=== PATIENT | male | born 1940 | race Caucasian/White ===

== ENCOUNTER → 2017-11-08 11:41 | Outpatient (CLI) | payer MEDICARE, SELFPAY ==
[2017-11-08 12:47] LABS: Anion Gap 9 (5-15); BUN 20 mg/dL (7-18); BUN/Creat Ratio 16.5 RATIO (10-20); Calcium,Total 8.5 mg/dL (8.5-10.1); Chloride 101 mmol/L (98-107); Cholesterol 198 mg/dL (200); Creatinine, Serum 1.21 mg/dL (0.70-1.30); EST Glomerular Filtration Rate 62 mL/min (>60); Est Glom Filt Rate - Afr Amer 75 mL/min (>60); Glucose 88 mg/dL (74-106); High Density Lipoprotein 65 mg/dL; Potassium 4.2 mmol/L (3.5-5.1); Sodium Level 139 mmol/L (136-145); Triglycerides 148 mg/dL; Very Low Density Lipoprotein 30 mg/dL (5-40)
== END ==
PROVIDERS: Family Provider Family Medicine; PCP Family Medicine; Visit Provider Family Medicine
DX: I10 Essential (primary) hypertension (principal)
CPT/HCPCS: 36415; 80048; 80061

== ENCOUNTER → 2017-11-14 13:29 | Outpatient (CLI) | payer MEDICARE, SELFPAY ==
--- NOTE | 2017-11-14 13:31 | ECHOD_ITS ---
Reason For Study: DYSPNEA Procedure This was a 2D Doppler, Color Flow transthoracic echocardiogram. Contrast injection was performed. The study was technically difficult. Exam performed in department. Left Ventricle Normal LV size. Left ventricular systolic function is normal. The estimated ejection fraction is 53 %. No evidence for diastolic dysfunction. No regional wall motion abnormalities noted. Right Ventricle Normal RV size. ICD or pacer leads identified within the right ventricle. Atria Normal left atrium. Mitral Valve Normal mitral valve. Tricuspid Valve Normal tricuspid valve. Aortic Valve Trisinus/trileaflet aortic valve. Mild focal aortic valve calcification. Pulmonic Valve Normal pulmonic valve. Great Vessels Normal aortic root. The pulmonary artery is normal size. Inferior vena cava collapse with respiration. Pericardium/Pleural No pericardial effusion. Medication 22 gauge I.V. with prn adaptor inserted into right arm. Diluted definity 3ml given slow IV push to enhance endocardial definition. MMode/2D Measurements & Calculations LVIDd: 4.6 cm IVSd: 0.92 cm Ao root diam: 4.1 cm LVIDs: 3.2 cm LVPWd: 0.87 cm LA dimension: 4.6 cm RVDd: 2.9 cm FS: 32.1 % LAV(MOD-bp): 70.8 ml EDV(MOD-sp4): 143.7 ml EDV(MOD-sp2): 64.4 ml LAV(MOD-bp) Indexed: 27.6 ml/m2 ESV(MOD-sp4): 85.5 ml EF(MOD-sp2): 59.1 % LAV(MOD-sp2): 74.0 ml EF(MOD-sp4): 40.5 % LAV(MOD-sp4): 61.2 ml SV(MOD-sp4): 58.2 ml SV(MOD-sp2): 38.1 ml LA A4 area: 21.8 cm2 RA A4 area: 17.0 cm2 Doppler Measurements & Calculations MV E max gosia: 68.8 cm/sec Ao V2 max: 114.2 cm/sec LV V1 max: 110.1 cm/sec MV A max gosia: 50.3 cm/sec Ao max P.2 mmHg LV V1 max P.9 mmHg MV E/A: 1.4 TR max gosia: 242.2 cm/sec TR max P.5 mmHg Interpretation Summary Normal LV size. Left ventricular systolic function is normal. The estimated ejection fraction is 53 %. No evidence for diastolic dysfunction. Contrast injection was performed. Ordering Physician: Josué Aguilar Referring Physician: LIZETTE SAEED Performed By: Norah Medeiros, TIENCS, RVT
== END ==
PROVIDERS: Family Provider Family Medicine; PCP Family Medicine; Visit Provider Internal Medicine Cardiovascular Disease
DX: I42.0 Dilated cardiomyopathy (principal)
CPT/HCPCS: 93306; Q9957; A4216; C8929

== ENCOUNTER → 2018-05-07 09:52 | Outpatient (CLI) | payer MEDICARE, SELFPAY ==
[2018-05-07 12:05] LABS: Absolute Lymphocyte Count 1.02 X10^3/ul (0.83-4.51); Absolute Neutrophil Count 3.4 X10^3/uL (2.0-7.7); Eosinophil# 0.02 X10^3/uL; Eosinophils% 0.4 % (0-5); Hematocrit 39.3 % (40-54); Hemoglobin 13.3 g/dl (13.0-16.5); Lymphocyte # 1.02 X10^3/ul (4.0); Lymphocyte % 20.4 % (19-41); Mean Corp Hgb Conc 33.8 g/gl (32-36); Mean Corpuscular Hgb 35.8 pg (27.0-32.0); Mean Corpuscular Volume 105.9 fL (80-94); Mean Platelet Vol. 10.6 fl (6.2-12.0); Neutrophil # 3.44 X10^3/uL (2.7-7.7); Platelet Count 89 K/mm3 (150-450); RBC Distribution Width CV 13.7 % (11.6-14.6); RBC Distribution Width SD 51.5 fl (35.1-43.9); Red Blood Count 3.71 M/mm3 (4.6-6.2)
[2018-05-07 12:21] LABS: POSITIVE COUNT NO; POSITIVE DIFFERENTIAL NO; POSITIVE MORPHOLOGY NO
[2018-05-07 12:26] LABS: Anion Gap 6 (5-15); BUN 14 mg/dL (7-18); BUN/Creat Ratio 11.2 RATIO (10-20); Calcium,Total 9.1 mg/dL (8.5-10.1); Chloride 103 mmol/L (98-107); Creatinine, Serum 1.25 mg/dL (0.70-1.30); EST Glomerular Filtration Rate 59 mL/min (>60); Est Glom Filt Rate - Afr Amer 72 mL/min (>60); Glucose 92 mg/dL (74-106); Potassium 4.3 mmol/L (3.5-5.1); Sodium Level 140 mmol/L (136-145)
[2018-05-07 12:37] LABS: Hemoglobin A1c 5.8 % (4.2-6.3)
== END ==
PROVIDERS: Family Provider Family Medicine; PCP Family Medicine; Visit Provider Family Medicine
DX: C85.80 Other specified types of non-Hodgkin lymphoma, unspecified site (principal); I10 Essential (primary) hypertension
CPT/HCPCS: 36415; 80048; 83036; 85025

== ENCOUNTER 2018-09-03 09:55 | Inpatient (IN) | payer MEDICARE, SELFPAY ==
[2018-09-03] VITALS (51 sets, daily range): BP systolic 70–121; BP diastolic 44–78; PULSE 62–120; RESP 12–36; TEMP 36.2–38.2; O2SAT 94–100; BMI 36.2; BMI 38.7; BMI 37.3
--- NOTE | 2018-09-03 10:10 | ED.RN ---
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
--- NOTE | 2018-09-03 10:47 | RAD_ITS ---
STUDY: X-RAY CHEST REASON FOR EXAM: Male, 78 years old. Dyspnea and fever. TECHNIQUE: AP and lateral views of the chest. COMPARISON: Comparison is made with prior study dated November 16, 2015. FINDINGS: EKG electrodes are seen. There is elevation of the left hemidiaphragm. I suspect focal infiltrate in the medial right lower lobe. Follow-up is recommended. A left-sided ICD is seen. Normal mediastinum and hernandez. Normal visualized pulmonary arteries. There is atherosclerotic calcification of the aortic arch with tortuosity. There are degenerative changes of the visualized thoracic spine. There is degenerative osteoarthritis of the bilateral shoulders. There is no demonstrated abnormality of the visualized soft tissue structures of the upper abdomen. RAD/Chest PA and Lateral IMPRESSION: I suspect focal infiltrate in the right infrahilar region. Follow-up is recommended. Electronically Signed: Sandro Scott MD at 11:23 EST Tel [phone], Service support ,
--- NOTE | 2018-09-03 10:47 | EKG12_ITS ---
Test Reason : SOB Blood Pressure : / mmHG Vent. Rate : 112 BPM Atrial Rate : 138 BPM P-R Int : 000 ms QRS Dur : 158 ms QT Int : 406 ms P-R-T Axes : 000 210 031 degrees QTc Int : 554 ms Ventricular-paced rhythm Biventricular pacemaker detected Abnormal ECG Confirmed by LAY ABDUL, PATRIZIA ([id number]), book or script editor MELANIE MCKEON ([id number]) on 09/07/2018 1:21:23 PM Referred By: ISMAEL Confirmed By:PATRIZIA CHUN MD
[2018-09-03 11:03] LABS: International Normalized Ratio 1.6; Prothrombin Time (Protime)PT. 19.5 SECONDS (11.7-14.9)
[2018-09-03 11:04] LABS: Hematocrit 27.3 % (40-54); Hemoglobin 8.7 g/dl (13.0-16.5); Mean Corp Hgb Conc 31.9 g/gl (32-36); Mean Corpuscular Hgb 32.2 pg (27.0-32.0); Mean Corpuscular Volume 101.1 fL (80-94); Partial Thromboplast Time 30.3 Seconds (24.1-36.2); Platelet Count 76 K/mm3 (150-450); RBC Distribution Width CV 20.1 % (11.6-14.6); RBC Distribution Width SD 70.8 fl (35.1-43.9)
[2018-09-03 11:09] LABS: Differential Indicated MANUAL DIFF; POSITIVE COUNT YES; POSITIVE DIFFERENTIAL NO; POSITIVE MORPHOLOGY YES; White Blood Count 57.5 K/mm3 (4.4-11.0)
--- NOTE | 2018-09-03 11:10 | ED.RN ---
wbc 57.5 called from the lab. dr awan aware
[2018-09-03 11:11] LABS: Absolute Nucleated RBC Count 0.42 10^3/uL (0-5); NRBC Flagged by Analyzer 0.7 % (0-5)
[2018-09-03 11:13] LABS: ALB/GLOB Ratio 0.7 RATIO (0.9-2.4); AST(SGOT) 34 U/L (15-37); Alanine Aminotransfer ALT/SGPT 27 U/L (16-61); Albumin, Serum 2.5 g/dL (3.2-5.0); Alkaline Phosphatase 98 U/L (45-117); Anion Gap 15 (5-15); BUN 45 mg/dL (7-18); Calcium,Total 7.9 mg/dL (8.5-10.1); Chloride 96 mmol/L (98-107); EST Glomerular Filtration Rate 22 mL/min (>60); Est Glom Filt Rate - Afr Amer 26 mL/min (>60); Estimated Creatinine Clearance 24.25 ml/min; Globulin 3.8 g/dL (2.2-4.2); Glucose 144 mg/dL (74-106); Protein, Total 6.3 g/dL (6.4-8.2); Sodium Level 132 mmol/L (136-145)
[2018-09-03 11:14] LABS: Lactic Acid 7.4 mmol/L (0.4-2.0)
[2018-09-03 11:17] LABS: Hypochromasia 2+; Lymphocyte 7 % (19-41); Monocyte 4 % (0-10); Neutrophil-Band 2 % (0-5); Neutrophil-Segmented 87 % (47-70); Platelet Estimate MOD DEC (ADEQ); Total Cells Counted 100 (MANUAL DIFF)
--- NOTE | 2018-09-03 11:17 | ED.RN ---
lab resulted lactic 7.4, physician notified
[2018-09-03 11:18] LABS: Absolute Neutrophil Count 51.2 X10^3/uL (2.0-7.7); Macrocytosis 1+
[2018-09-03] MEDS: 0.9% Normal Saline 1,000 ML 999 ML IV ×2 (11:20→12:56)
[2018-09-03] MEDS: Acetaminophen 500 MG Tablet 1000 MG PO (11:20)
[2018-09-03 11:55] LABS: Mucous, Urine 0 SEEN /hpf (<or=2+); Squamous Epithelial Cells - UA 0 SEEN /hpf (0-5)
[2018-09-03 12:01] LABS: Color, Urine Yellow (Yellow); Glucose, Dipstick Normal (Normal); Ketone-Dipstick 5 mg/dl (Negative); Leukocyte Esterase-Dipstick 100 /ul (Negative); Nitrite-Dipstick Negative (Negative); Occult Blood-Urine 150 /ul (Negative); Protein-Dipstick 30 mg/dl (Negative); Specific Gravity, Urine 1.025 (1.002-1.030); Urine Clarity Sl. Cloudy (Clear); Urine Urobilinogen 4 mg/dl (Normal)
[2018-09-03 12:02] LABS: Urine Bilirubin Dipstick 1 mg/dL (Negative)
[2018-09-03 12:06] LABS: Amorphous Sediment 1+; Bacteria 1+ /hpf (None Seen); Red Blood Cells-Urine 10-25 SEEN /hpf (0-5); White Blood Cells 10-25 SEEN /hpf (0-5)
--- NOTE | 2018-09-03 12:45 | ED.VISSUMM ---
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 Patient has a defibrillator. States for the last week is not felt well is been short of breath with a cough. Productive of sputum. Mild chest discomfort. No hemoptysis. No melena. Physical Examination: Older male vital signs are stable he is tachycardic at 111 is a low-grade temperature 100.2. He looks like he does not feel well. H EENT exam unremarkable. Moist mucous membranes. Neck nontender. No lymphadenopathy. Heart tachycardic rate around 111. No obvious murmur. Lungs extra Tory wheezing. Abdomen soft. Nondistended normal bowel sounds no peritoneal signs. Patient is moving all 4 extremities. Calves are nontender without edema or cords. Neurologically is awake and alert. No focal motor deficits. Test Results: Chest x-ray shows a right perihilar pneumonia. Read both of myself and the radiologist. EKG is a paced rhythm with interventricular conduction delay. White count is 57,000 previously was 5. Hemoglobin is 8 previously was 13. White count 76,000. Electrolytes show sodium 132. Acute kidney injury with a BUN of 45 and a creatinine of 3.0. Urine shows 10-25 white cells 10-25 red cells and 1+ bacteria culture was sent. Troponins as above normal. Lactic acid is 7.4. Blood and urine cultures have been sent. Emergency Department Course and Treatment: Patient given 1 L of fluid. P.o. Tylenol. Second liter of fluid. IV Rocephin and Zithromax for his pneumonia and septic shock. Treatment Plan: Repeat exam patient's become hypotensive with a blood pressure 95/70. We will get a second liter of normal saline. I have already spoken to the hospitalist and the nut sheller will be admitted to the ICU. I discussed all test results with the family. Disposition: Admission Impression: Acute right hilar pneumonia Acute septic shock. Acute hypotension. Acute kidney injury. Critical care time of 35 minutes. Recurrent CLL with anemia and thrombocytopenia. Rule out UTI Acute lactic acidosis This note was generated with [employer] software. It may contain incorrect words, spelling, and punctuation that were not noted in review of the chart prior to signing ED Disposition - Plan for ED Patient: Chief Complaint: Shortness of Breath Referrals: Stella Shelby MD [Primary Care Provider] -
[2018-09-03] MEDS: Ceftriaxone 1 GM/50 ML BAG IV (13:10)
--- NOTE | 2018-09-03 14:17 | PCM.HP.STD ---
Problem List (1) Chronic systolic (congestive) heart failure Status: Chronic (2) Right bundle branch block Status: Chronic (3) Hyperlipidemia Status: Chronic Qualifiers: (4) Hypertension Status: Chronic Qualifiers: (5) Cardiomyopathy Status: Chronic Qualifiers: Comment: Dilated (6) Biventricular ICD (implantable cardioverter-defibrillator) in place Status: Chronic Comment: Bi-V ICD Implant 11/17/2015 @ [place] (7) Atrioventricular block, complete Status: Chronic (8) Chronic lymphoid leukemia Status: Chronic (9) Septic shock Status: Acute History of Present Illness Date of Admission: 09/03/18 Chief Complaint: Generalized weakness The patient is a 78 year old M with past medical history significant for recurrent CLL who is scheduled to begin chemotherapy in September 2018, history of nonischemic cardiomyopathy status post AICD placement who presented with a week history of generalized weakness. Per family who provided most of the history patient has had a poor appetite has also had shortness of breath as well as a nonproductive cough. Patient also did experience subjective fever and chills. He was finally brought to the emergency department where imaging studies obtained demonstrated questionable right infrahilar infiltrate. Patient was also found to have abnormal urinalysis consistent with cystitis. Patient blood pressure upon presentation to the ED was around Ron later dropped to the mid 80s. His lactic acid levels were found to be markedly elevated and assessment of septic shock was made treatment initiated per protocol patient admitted to the intensive care unit for further management 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) Bi-V ICD Implant 11/17/2015 @ [facility] Atrioventricular block, complete (Chronic) Chronic lymphoid leukemia (Chronic) Medical History: Medical History (Last Reviewed 10/25/17 @ 10:21 by Josué Aguilar MD) Chronic systolic (congestive) heart failure (Chronic) I50.22 Right bundle branch block (Chronic) I45.10 Hyperlipidemia (Chronic) E78.5 Hypertension (Chronic) I10 Cardiomyopathy (Chronic) I42.9 Dilated Atrioventricular block, complete (Chronic) I44.2 Chronic lymphoid leukemia (Chronic) C91.10 History of chest pain (Inactive) Z87.898 Allergies aspirin Allergy (Verified 04/24/18 09:05) Shortness of breath adhesive tape Adverse Reaction (Verified 04/24/18 09:05) Other TAKES SKIN OFF Home Medications: Ambulatory Orders Medication Instructions Recorded Acetaminophen [Tylenol Extra 1,000 mg PO Q4H PRN PRN 06/18/13 Strength] Albuterol IH (ProAir) [Proair Hfa] 2 puff INHALATION Q4H PRN PRN 06/18/13 Antiox #8/Om3/Dha/Epa/Lut/Zeax 1 ea PO DAILY 06/18/13 [Preservision Areds 2 Softgel] Folic Acid/Multivits-Min/Lut 1 tab PO DAILY 06/18/13 Montelukast [Singulair] 10 mg PO DAILY 06/18/13 Mckenney-3 Fatty Acids/Fish Oil [Fish 1 ea PO DAILY 06/18/13 Oil 1,000 mg Softgel] fentaNYL patch [Duragesic] 25 mcg TRANSDERM. Q72H 08/20/13 Duloxetine HCl 60 mg PO QHS 05/26/15 Ropinirole HCl [Requip] 0.25 mg PO QHS 08/03/15 gabapentin 100 mg capsule 100 mg PO BID cap 10/19/17 quinapril 10 mg tablet 10 mg PO QDAY 10/19/17 furosemide 40 mg tablet 40 mg PO QDAY #90 tab 11/13/17 Ferrous Sulfate 325 mg PO BIDCM 09/03/18 Latanoprost 0.005% [Xalatan 1 drop EACH EYE QHS 09/03/18 Opthalmic] Multivitamins,Therapeutic 1 tablet PO DAILY 09/03/18 [Multivitamin] Vit C/Vit E AC/Lut/Copper/Zinc 1 cap PO DAILY 09/03/18 [Preservision Lutein Softgel] Surgical History: Surgical History (Last Reviewed 09/03/18 @ 14:22 by Saravanan Connors MD) Biventricular ICD (implantable cardioverter-defibrillator) in place (Chronic) Z95.810 Bi-V ICD Implant 11/17/2015 @ [place] History of repair of rotator cuff Z98.890 History of right knee surgery Z98.890 Previous back surgery Z98.890 Surgical History: total knee arthroplasty Smoking Status: Former smoker - *Family History Paternal Family History: Family History (Last Reviewed 09/03/18 @ 14:22 by Saravanan Connors MD) Brother CAD (coronary artery disease) Review of Systems Constitutional: Reports: Anorexia, Chills, Fever, Weakness HEENT: Denies: Head Aches, Sinus Congestion, Sinus Drainage Cardiovascular: Denies: Chest Pain, Orthopnea, Palpitations, Paroxysmal Noc. Dyspnea Respiratory: Reports: Cough, Shortness of Breath Gastrointestinal: Denies: Abdominal Pain, Hematemesis, Hematochezia, Nausea, Melena, Vomiting Genitourinary: Denies: Dysuria, Frequency, Hematuria, Urgency Musculoskeletal: Denies: Joint Pain, Joint Tenderness Skin: Reports: Skin Changes Neurological: Denies: Focal weakness, Numbness, Tingling Psychiatric: Denies: Homicidal Ideations, Suicidal Ideations VTE Information - Inpt Only VTE Present on Admission: No VTE Mechan Device Prophylaxis: None VTE Pharm Prophylaxis ordered?: No Reason prophylaxis not ordered:: Medical Contraindication Patient Problems: Active and Suspected Problems (Last Reviewed 10/25/17 @ 10:21 by Josué Aguilar MD) Septic shock (Acute) Objective: GENERAL: Appears ill looking HEENT: Atraumatic; moist oral mucosa EYES; Anicteric, Normal Conjunctiva NECK; supple, normal thyroid, RESPIRATORY: Diminished to auscultation bilaterally, CARDIOVASCULAR: Regular S1 S2, GI: soft, non-tender, normoactive bowel sounds, : No Renal angle tenderness; EXTREMITIES: No edema, no clubbing, MUSCULOSKELETAL: No Joint Tenderness; NEURO: Awake; no lateralizing signs. SKIN: Stasis dermatitis involving both lower extremities PSYCH; Normal affect - Physical Exam Vital Signs Temp Pulse Resp BP Pulse Ox 99.9 F H 106 H 26 H 109/57 L 98 09/03/18 13:07 09/03/18 13:09 09/03/18 13:09 09/03/18 13:09 09/03/18 13:09 Oxygen Flow Rate (L/min) 15 Oxygen Delivery Method Non-Rebreather Weight: 140.4 kg Body Mass Index (BMI) 38.7 Laboratory Tests Past 24 Hrs 09/03/18 09/03/18 09/03/18 09:00 09:00 09:00 WBC 57.5 H* RBC 2.70 L Hgb 8.7 L Hct 27.3 L MCV 101.1 H MCH 32.2 H MCHC 31.9 L RDW 20.1 H RDW Differential 70.8 H Plt Count 76 L MPV TNP Neut % (Auto) Not Reportable Absolute Neuts (auto) 51.2 H Absolute Lymphs (auto) 4.00 Total Counted 100 Neutrophils % (Manual) 87 H Band Neutrophils % 2 Lymphocytes % (Manual) 7 L Monocytes % (Manual) 4 Nucleated RBC % 0.7 Diff Path Review May foll Platelet Estimate MOD DEC Hypochromasia 2+ Macrocytosis 1+ Absolute Retic 0.42 PT 19.5 H INR 1.6 APTT 30.3 Sodium 132 L Potassium 4.0 Chloride 96 L Carbon Dioxide 21.0 Anion Gap 15 BUN 45 H Creatinine 3.00 H Estim Creat Clear Calc 24.25 Est GFR (MDRD) Af Amer 26 L Est GFR (MDRD) Non-Af 22 L BUN/Creatinine Ratio 15.0 Glucose 144 H Lactic Acid Calcium 7.9 L Total Bilirubin 1.60 H AST 34 ALT 27 Alkaline Phosphatase 98 Troponin I 0.046 H Total Protein 6.3 L Albumin 2.5 L Globulin 3.8 Albumin/Globulin Ratio 0.7 L Urine Color Urine Clarity Urine pH Ur Specific [place] Urine Protein Urine Glucose (UA) Urine Ketones Urine Occult Blood Urine Nitrite Urine Bilirubin Urine Urobilinogen Ur Leukocyte Esterase Urine RBC Urine WBC Ur Squamous Epith Cells Amorphous Sediment Urine Bacteria Urine Mucus 09/03/18 09/03/18 09:00 11:45 WBC RBC Hgb Hct MCV MCH MCHC RDW RDW Differential Plt Count MPV Neut % (Auto) Absolute Neuts (auto) Absolute Lymphs (auto) Total Counted Neutrophils % (Manual) Band Neutrophils % Lymphocytes % (Manual) Monocytes % (Manual) Nucleated RBC % Diff Path Review Platelet Estimate Hypochromasia Macrocytosis Absolute Retic PT INR APTT Sodium Potassium Chloride Carbon Dioxide Anion Gap BUN Creatinine Estim Creat Clear Calc Est GFR (MDRD) Af Amer Est GFR (MDRD) Non-Af BUN/Creatinine Ratio Glucose Lactic Acid 7.4 H* Calcium Total Bilirubin AST ALT Alkaline Phosphatase Troponin I Total Protein Albumin Globulin Albumin/Globulin Ratio Urine Color Yellow Urine Clarity Sl. Cloudy Urine pH 5.0 Ur Specific [place] 1.025 Urine Protein 30 H Urine Glucose (UA) Normal Urine Ketones 5 H Urine Occult Blood 150 H Urine Nitrite Negative Urine Bilirubin 1 H Urine Urobilinogen 4 H Ur Leukocyte Esterase 100 H Urine RBC 10-25 SEEN Urine WBC 10-25 SEEN Ur Squamous Epith Cells 0 SEEN Amorphous Sediment 1+ Urine Bacteria 1+ Urine Mucus 0 SEEN Assessment/Plan All Active Problems (Last Reviewed 10/25/17 @ 10:21 by Josué Aguilar MD) Septic shock (Acute) Patient is a 78-year-old gentleman recently diagnosed with recurrent chronic lymphocytic leukemia who presented with progressive generalized weakness and assessment of septic shock was made attributed to suspected community-acquired pneumonia as well as acute cystitis 1. Septic shock secondary to community-acquired pneumonia as well as acute cystitis: Patient has been admitted to intensive care unit managed with stroke protocol consisting of aggressive IV fluid resuscitation, broad-spectrum antibiotic therapy with ciprofloxacin as well as Zosyn in addition to vancomycin after cultures have been obtained in the ED, consultation was also placed to the director of food and nutrition services Dr. Giles Case discussed with team 2. Community-acquired pneumonia presented with septic shock management as discussed above 3. Acute cystitis 4. Recently diagnosed recurrence chronic lymphocytic leukemia patient is followed by Dr. Jaimes consultation was placed to him 5. Thrombocytopenia secondary to patient's sepsis as well as his underlying malignancy patient does not have any signs or symptoms of active bleeding for now 6. 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 Chronic known ischemic cardiomyopathy status post AICD placement 8. Restless leg syndrome patient is on Requip 9. Dyslipidemia managed with diet only 10. Hypertension antihypertensives on hold in view of patient presentation 11. DVT prophylaxis SCDs for now avoided the use of chemoprophylaxis in view of patient thrombocytopenia Advance planning; did discuss with the patient and family regarding his advanced directives as well as CODE STATUS. Did explain the various modalities involved ( FULL CODE, DNR CCA, DNR CCA with no intubation, and DNR CC ) patient elected to be DNR CCA no intubation. Order was placed. Time spent on discussion 20 minutes. Clinical Impression(s) from Imaging Studies Chest X-Ray 09/03/18 10:47 IMPRESSION: I suspect focal infiltrate in the right infrahilar region. Follow-up is recommended. Electronically Signed: Sandro Scott MD at 11:23 EST Tel [phone], Service support , Code Visit Inpatient E&M: 93626 Init Hosp L3 Procedures: 20621 Advncd Care Plan 30 Min
[2018-09-03 14:54] LABS: Reflex Lactate? Y
[2018-09-03] MEDS: Ipratropium/Albuterol Sulfate 3 ML AMPUL.NEB INHALATION ×2 (15:15→18:33)
--- NOTE | 2018-09-03 15:24 | CON.PCM_ITS ---
Reason for Consult Date of Consultation: 09/03/18 Reason for Consultation: Severe sepsis/acute hypoxic respiratory failure History of Present Illness: The patient is a 78-year-old male, with a history as outlined below, who presented to the emergency department on September 03 with complaints of generalized weakness and shortness of breath. 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 Navid Menjivar on an outpatient basis. He and his family report that he was attempting to ambulate this afternoon at home, when he became rather acutely short of breath and weak. The patient denies a history of prior venous thromboembolic disease. He does not rely on supplemental oxygen at his baseline. On presentation to the emergency department, the patient was noted to be febrile with a blood pressure of 99/44 mmHg. He was noted to be tachypneic and hypoxic. Initial laboratory evaluation revealed an elevated white blood cell count to 57,000 with evidence of macrocytic anemia, with a hemoglobin of 8.7. Coags were within normal limits. Chemistry profile was notable for a creatinine of 3.0. Serum lactate was elevated to 7.4. Total bili was increased to 1.6. The patient did have an elevated troponin to 0.046. Urinalysis was notable for leukocyte esterase and 1+ urine bacteria. The patient received supplemental IV fluid hydration and was put on broad-spectrum antibiotics. He was subsequently transferred to the medical intensive care unit for ongoing management. Shortly after his arrival to the ICU, the patient was initiated on bilevel therapy with a pressure support of 14/7 centimeters of water with a 40% FiO2 bleed. Of note, the patient's initial lactate was drawn this morning at 0900 hrs. No repeat lactate was ever obtained while in the emergency department. I did have a very jaquelin discussion with the patient and the family members at the bedside regarding the patient's CODE STATUS. Following a discussion regarding the difference between full code, DNR CCA and DNR CC, the patient elected DNR CCA without intubation. 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) Bi-V ICD Implant 11/17/2015 @ [place] Atrioventricular block, complete (Chronic) Chronic lymphoid leukemia (Chronic) Medical History: Medical History (Last Reviewed 10/25/17 @ 10:21 by Josué Aguilar MD) Chronic systolic (congestive) heart failure (Chronic) I50.22 Right bundle branch block (Chronic) I45.10 Hyperlipidemia (Chronic) E78.5 Hypertension (Chronic) I10 Cardiomyopathy (Chronic) I42.9 Dilated Atrioventricular block, complete (Chronic) I44.2 Chronic lymphoid leukemia (Chronic) C91.10 History of chest pain (Inactive) Z87.898 Allergies aspirin Allergy (Verified 04/24/18 09:05) Shortness of breath adhesive tape Adverse Reaction (Verified 04/24/18 09:05) Other TAKES SKIN OFF Home Medications: Ambulatory Orders Medication Instructions Recorded Acetaminophen [Tylenol Extra 1,000 mg PO Q4H PRN PRN 06/18/13 Strength] Albuterol IH (ProAir) [Proair Hfa] 2 puff INHALATION Q4H PRN PRN 06/18/13 Antiox #8/Om3/Dha/Epa/Lut/Zeax 1 ea PO DAILY 06/18/13 [Preservision Areds 2 Softgel] Folic Acid/Multivits-Min/Lut 1 tab PO DAILY 06/18/13 Montelukast [Singulair] 10 mg PO DAILY 06/18/13 [place]-3 Fatty Acids/Fish Oil [Fish 1 ea PO DAILY 06/18/13 Oil 1,000 mg Softgel] fentaNYL patch [Duragesic] 25 mcg TRANSDERM. Q72H 08/20/13 Duloxetine HCl 60 mg PO QHS 05/26/15 Ropinirole HCl [Requip] 0.25 mg PO QHS 08/03/15 gabapentin 100 mg capsule 100 mg PO BID cap 10/19/17 quinapril 10 mg tablet 10 mg PO QDAY 10/19/17 furosemide 40 mg tablet 40 mg PO QDAY #90 tab 11/13/17 Ferrous Sulfate 325 mg PO BIDCM 09/03/18 Latanoprost 0.005% [Xalatan 1 drop EACH EYE QHS 09/03/18 Opthalmic] Multivitamins,Therapeutic 1 tablet PO DAILY 09/03/18 [Multivitamin] Vit C/Vit E AC/Lut/Copper/Zinc 1 cap PO DAILY 09/03/18 [Preservision Lutein Softgel] Surgical History: Surgical History (Last Reviewed 09/03/18 @ 14:22 by Saravanan Connors MD) Biventricular ICD (implantable cardioverter-defibrillator) in place (Chronic) Z95.810 Bi-V ICD Implant 11/17/2015 @ [place] History of repair of rotator cuff Z98.890 History of right knee surgery Z98.890 Previous back surgery Z98.890 Surgical History: total knee arthroplasty Smoking Status: Former smoker - *Family History Paternal Family History: Family History (Last Reviewed 09/03/18 @ 14:22 by Saravanan Connors MD) Brother CAD (coronary artery disease) Review of Systems Constitutional: Reports: Chills, Fever, Weakness, Fatigue Eyes: Denies: Blurred vision, Double vision HEENT: Denies: Head Aches, Sinus Congestion, Sinus Drainage Cardiovascular: Denies: Chest Pain, Palpitations Respiratory: Reports: Cough, Shortness of Breath, Sputum production Gastrointestinal: Denies: Abdominal Pain, Nausea, Vomiting Genitourinary: Denies: Dysuria Musculoskeletal: Denies: Joint Pain, Joint Tenderness Skin: Denies: Rash, Wounds Neurological: Denies: Numbness, Tingling, Focal weakness Psychiatric: Denies: Anxiety, Depression, Homicidal Ideations, Suicidal Ideations Hematologic/ Lymphatic: Reports: Anemia Patient Problems: Active and Suspected Problems (Last Reviewed 10/25/17 @ 10:21 by Josué Aguilar MD) Septic shock (Acute) Objective: The patient's most recent lab work, culture data and imaging studies have all been personally reviewed. Surface echocardiogram dated October 2017 revealed normal LV size and function with an ejection fraction of 53%. - Physical Exam General: Alert, Cooperative, - - Ill in appearance. Mildly distressed on BiPAP. HEENT: Atraumatic, PERRLA, Normocephalic Neck: Supple, No Nodes, Trachea Midline Lungs: No rhonchi, No wheeze, No rales, Diminished, Short of Breath, Tachypneic Cardiovascular: Normal S1, Normal S2, No murmurs, Tachycardic Abdomen: Bowel Sounds Present, Soft, Non Tender, Obese Extremities: No clubbing, No cyanosis, No edema Skin: - - Lower extremity venous stasis dermatitis Musculoskeletal: No Muscle Wasting Neurological: Cranial nerves II-XII grossly intact, Neuro grossly intact Psych/Mental Status: Normal Affect, Appropriate Vital Signs Temp Pulse Resp BP Pulse Ox 37.7 C H 105 H 25 H 109/57 L 97 09/03/18 13:07 09/03/18 14:40 09/03/18 14:40 09/03/18 13:09 09/03/18 14:40 Oxygen Flow Rate (L/min) 15 Oxygen Delivery Method Non-Rebreather Weight: 298 lb 11.622 oz Body Mass Index (BMI) 37.3 Laboratory Tests Past 24 Hrs 09/03/18 09/03/18 09/03/18 09:00 09:00 09:00 WBC 57.5 H* RBC 2.70 L Hgb 8.7 L Hct 27.3 L MCV 101.1 H MCH 32.2 H MCHC 31.9 L RDW 20.1 H RDW Differential 70.8 H Plt Count 76 L MPV TNP Neut % (Auto) Not Reportable Absolute Neuts (auto) 51.2 H Absolute Lymphs (auto) 4.00 Total Counted 100 Neutrophils % (Manual) 87 H Band Neutrophils % 2 Lymphocytes % (Manual) 7 L Monocytes % (Manual) 4 Nucleated RBC % 0.7 Diff Path Review May foll Platelet Estimate MOD DEC Hypochromasia 2+ Macrocytosis 1+ Absolute Retic 0.42 PT 19.5 H INR 1.6 APTT 30.3 Sodium 132 L Potassium 4.0 Chloride 96 L Carbon Dioxide 21.0 Anion Gap 15 BUN 45 H Creatinine 3.00 H Estim Creat Clear Calc 24.25 Est GFR (MDRD) Af Amer 26 L Est GFR (MDRD) Non-Af 22 L BUN/Creatinine Ratio 15.0 Glucose 144 H Lactic Acid Calcium 7.9 L Total Bilirubin 1.60 H AST 34 ALT 27 Alkaline Phosphatase 98 Troponin I 0.046 H Total Protein 6.3 L Albumin 2.5 L Globulin 3.8 Albumin/Globulin Ratio 0.7 L Urine Color Urine Clarity Urine pH Ur Specific [place] Urine Protein Urine Glucose (UA) Urine Ketones Urine Occult Blood Urine Nitrite Urine Bilirubin Urine Urobilinogen Ur Leukocyte Esterase Urine RBC Urine WBC Ur Squamous Epith Cells Amorphous Sediment Urine Bacteria Urine Mucus 09/03/18 09/03/18 09:00 11:45 WBC RBC Hgb Hct MCV MCH MCHC RDW RDW Differential Plt Count MPV Neut % (Auto) Absolute Neuts (auto) Absolute Lymphs (auto) Total Counted Neutrophils % (Manual) Band Neutrophils % Lymphocytes % (Manual) Monocytes % (Manual) Nucleated RBC % Diff Path Review Platelet Estimate Hypochromasia Macrocytosis Absolute Retic PT INR APTT Sodium Potassium Chloride Carbon Dioxide Anion Gap BUN Creatinine Estim Creat Clear Calc Est GFR (MDRD) Af Amer Est GFR (MDRD) Non-Af BUN/Creatinine Ratio Glucose Lactic Acid 7.4 H* Calcium Total Bilirubin AST ALT Alkaline Phosphatase Troponin I Total Protein Albumin Globulin Albumin/Globulin Ratio Urine Color Yellow Urine Clarity Sl. Cloudy Urine pH 5.0 Ur Specific [place] 1.025 Urine Protein 30 H Urine Glucose (UA) Normal Urine Ketones 5 H Urine Occult Blood 150 H Urine Nitrite Negative Urine Bilirubin 1 H Urine Urobilinogen 4 H Ur Leukocyte Esterase 100 H Urine RBC 10-25 SEEN Urine WBC 10-25 SEEN Ur Squamous Epith Cells 0 SEEN Amorphous Sediment 1+ Urine Bacteria 1+ Urine Mucus 0 SEEN Clinical Impression(s) from Imaging Studies Chest X-Ray 09/03/18 10:47 IMPRESSION: I suspect focal infiltrate in the right infrahilar region. Follow-up is recommended. Electronically Signed: Sandro Scott MD at 11:23 EST Tel [phone], Service support , Assessment/Plan Active and Suspected Problems (Last Reviewed 10/25/17 @ 10:21 by Josué Aguilar MD) Septic shock (Acute) RECOMMENDATIONS: 1. Continue broad-spectrum antibiotics, pending infectious workup. 2. Check strep and urine Legionella antigens, along with respiratory viral panel. Obtain sputum for culture. 3. Initiate BiPAP 14/7 and obtain arterial blood gas. 4. Supplemental IV fluid hydration per sepsis protocol. Recheck serum lactate level. 5. Discontinue ciprofloxacin. 6. Check MRSA screen. 7. Patient to be n.p.o. for now. 8. Oncology consultation is pending. 9. Place central venous catheter and initiate Levophed, if needed, to maintain hemodynamic stability. IMPRESSIONS: 1. Severe sepsis with concerns for pulmonary infectious process and/or cystitis The patient initially presented with complaints of shortness of breath and cough. His plain film chest x-ray did reveal findings concerning for a right perihilar infiltrate. At this time, the patient will be continued on the sepsis protocol with IV fluid resuscitation and broad-spectrum antibiotics. A central venous catheter will be placed so that vasopressor support can be initiated, if clinically indicated to maintain a mean arterial pressure at or above 65 mmHg. Recommend rechecking serum lactate level. Infectious workup is currently pending. 2. Acute hypoxic respiratory failure Likely secondary to underlying pulmonary infectious process. However, given the degree of the patient's hypoxia and acuity in onset, clinical considerations would also include that for venous thromboembolic disease. Nevertheless, the patient's elevated creatinine would preclude obtaining a CTA chest. If the patient does not respond appropriately to the treatment as outlined above, will consider empiric anticoagulation and lower extremity Dopplers studies. Obtain sputum for culture and check strep and urine Legionella antigens, along with respiratory viral panel. 3. Chronic leukemia Oncology consultation is currently pending. 4. Macrocytic anemia The patient's hemoglobin on presentation was noted to be 8.7 g/dL. Previously, the patient had a baseline hemoglobin in the 12-14 range. We will continue to monitor accordingly. Transfuse if hemoglobin drops below 7 g/dL. 5. Acute kidney injury Likely prerenal in etiology. Anticipate improvement with volume expansion and stabilization of hemodynamics. Urine output is currently appropriate. No indication for renal replacement therapy. 6. Troponin elevation Likely secondary to demand ischemia in the setting of #1. Continue to trend troponins. 7. Personal history of asthma/depression/restless leg syndrome/nonischemic cardiomyopathy/obesity Complicates care, management, recovery and prognosis. Hold outpatient diuretic regimen, given tenuous hemodynamics. 8. CODE STATUS DNR CCA without intubation. Confirmed by patient and family members at the bedside. TIME: 50 minutes of critical care time, independent of procedures, was spent addressing the patient's severe sepsis, acute respiratory failure, chronic leukemia, anemia, acute kidney injury, troponin elevation, review of all data and collaboration with the care team. ([id number]) Code Visit 9xxxx: [id number] Critical care first hour
--- NOTE | 2018-09-03 15:25 | NURSING ---
1525 - HR 97, R 22, 100%, 70/44 Mini KOROMA present in pt room for central line placement 1530 HR 101, R 24 SpO2 99%, BP 73/51 1535 HR 99, R 23, SpO2 98%,BP 75/53 1540 HR 100, R 21, SpO2 99%, BP 76/53. Dr. Giles present in room 1545 HR 98, R23, SpO2 99%, BP 79/50 1550 HR 100, R 24, SpO2 99%, BP 81/53. JUSTICE LOW placed
[2018-09-03 15:26] LABS: Allen Test POS; Base Excess -7 mmol/L (-2 to +2); Bicarbonate 17.7 mmol/L (22-26); Blood Gas Specimen Type ART; EPAP 7; FI02 40; IPAP 14; PO2 82 mmHG (75-100); RR 12; SITE R Radial; SO2 96 % (95-99); Time Given 1522; Total Carbon Dioxide 19 mmol/L; pCO2 28.5 mmHg (35-45)
--- NOTE | 2018-09-03 15:46 | RAD_ITS ---
STUDY: X-RAY CHEST REASON FOR EXAM: Male, 78 years old. Central line placement TECHNIQUE: Single AP portable view of the chest. COMPARISON: Prior study of earlier this date 11:11 AM FINDINGS: There is a left-sided pacemaker. There is a right-sided central venous line with distal tip superimposed on the distal SVC. There is again noted a suspected infiltrate of the medial right lower lobe. The left lung is clear. The left hemidiaphragm is elevated. Normal size heart. Normal mediastinum and hernandez. Normal visualized pulmonary arteries. There are calcified plaques of the aortic arch. Normal visualized thoracic spine. There are degenerative changes of the right shoulder joint. There is no demonstrated abnormality of the visualized soft tissue structures of the upper abdomen. RAD/CXR for Line Placement IMPRESSION: Right-sided central venous line with tip superimposed on the distal SVC. Elevated left hemidiaphragm. Suspected medial right lower lobe infiltrate, similar to the previous study. Degenerative changes of the right shoulder joint. Electronically Signed: Manuel Jade MD at 16:45 EST , Service support ,
--- NOTE | 2018-09-03 15:59 | PCM.OP.BLANK ---
Operative Report Date of Procedure: 09/03/18 - Triple-lumen catheter insertion Central line placement procedure note Indication: IV access/hemodynamic instability/vasoactive medications Procedure: A time-out was completed to verify correct patient, indication, medication allergies, procedure, coagulation studies, informed consent signed, and equipment needed. The patient was placed in the supine position for a central line placement to the rt IJ vein. The patients rt neck was prepped using chlorhexidine and a full body sterile drape was applied. 1% lidocaine was used to anesthetize the surrounding skin. A 7fr 20 cm blue guard triple lumen catheter introduced into the internal jugular vein using the modified Seldinger technique with the assistance of ultrasound. The catheter was threaded smoothly over the guidewire, the guidewire was removed easily, nonpulsatile blood returned. All ports were aspirated of air and flushed with sterile saline. The catheter was sutured in place and covered with an occlusive dressing impregnated with chlorhexidine. Post-procedure: The patient tolerated the procedure well. Vital signs remained stable. EBL 5 cc. No complications. Chest X Ray confirmed tip placement and the absence of pneumothorax. Code Visit Procedures: [id number] Insert Non-tunnel CV Cath
[2018-09-03] MEDS: 0.9% Normal Saline 1,000 ML 150 ML IV ×2 (16:04→21:36)
[2018-09-03 16:50] LABS: Lactic Acid 2.9 mmol/L (0.4-2.0)
[2018-09-03] MEDS: Ketorolac 15 MG/ML Vial IV (18:38)
[2018-09-03] MEDS: 0.9% NaCl Peripheral Flush Adult/Peds IV (18:38)
[2018-09-03 20:29] LABS: M R Staph aureus DNA By PCR Negative (Negative)
[2018-09-03 20:30] LABS: Probe Check PASS; Specimen Processing Control PASS
[2018-09-03] MEDS: Latanoprost 0.005% 1 Bottle 1 DRP EACH EYE (21:36)
[2018-09-03] MEDS: Piperacil/Tazobactam 3.375 GM/50 ML ML IV (21:36)
[2018-09-04] VITALS (61 sets, daily range): BP systolic 76–226; BP diastolic 41–194; PULSE 87–120; RESP 12–40; TEMP 36.5–38.6; O2SAT 79–100
[2018-09-04] MEDS: 0.9% NaCl Peripheral Flush Adult/Peds IV ×3 (04:24→22:53)
[2018-09-04] MEDS: 0.9% Normal Saline 1,000 ML 150 ML IV ×2 (04:25→11:05)
[2018-09-04 05:16] LABS: Anion Gap 14 (5-15); BUN 55 mg/dL (7-18); BUN/Creat Ratio 18.9 RATIO (10-20); Calcium,Total 7.6 mg/dL (8.5-10.1); Chloride 101 mmol/L (98-107); Creatinine, Serum 2.91 mg/dL (0.70-1.30); EST Glomerular Filtration Rate 22 mL/min (>60); Est Glom Filt Rate - Afr Amer 27 mL/min (>60); Glucose 159 mg/dL (74-106); Magnesium 1.9 mg/dL (1.6-2.6); Potassium 3.9 mmol/L (3.5-5.1); Sodium Level 137 mmol/L (136-145)
--- NOTE | 2018-09-04 06:52 | PN_ITS ---
Subjective: The patient was seen and examined at the bedside this morning. Events from the last 24 hours have been reviewed. The patient is currently afebrile, hemodynamically stable and maintaining appropriate oxygen saturations on BiPAP. The patient did have to be placed on Levophed transiently overnight to maintain hemodynamic stability. However, at the current time, he is not requiring vasopressor support. Levophed was weaned off approximately 2 hours ago. Objective: The patient's most recent lab work, culture data and imaging studies have all been personally reviewed. Strep and urine Legionella antigens are negative. Rapid influenza screen was negative. Blood and urine cultures are pending. Surface echocardiogram dated October 2017 revealed normal LV size and function with an ejection fraction of 53%. General: Alert, Cooperative, No apparent distress HEENT: Atraumatic, PERRLA, Normocephalic Oral: Dry Mucosa Neck: Supple, No Nodes, Trachea Midline Lungs: No rhonchi, No wheeze, Diminished, Rales Cardiovascular: Normal S1, Normal S2, No murmurs, Tachycardic, - - Paced rhythm on telemetry Abdomen: Bowel Sounds Present, Soft, Non Tender, Obese Extremities: No clubbing, No cyanosis, No edema Skin: - - Venous stasis dermatitis Musculoskeletal: No Tenderness to Palpation of Joints or Extremities Lymphatic: No Cervical, Supraclavicular, or Inguinal Adenopathy Neurological: Neuro grossly intact Psych/Mental Status: Normal Affect, Appropriate Vital Signs Temp Pulse Resp BP Pulse Ox 36.6 C 109 H 28 H 99/65 100 09/04/18 04:45 09/04/18 06:15 09/04/18 06:15 09/04/18 06:15 09/04/18 06:15 Oxygen Flow Rate (L/min) 6 Oxygen Delivery Method Bi-pap Weight: 301 lb 5.95 oz Body Mass Index (BMI) 37.3 Intake and Output for Last 24 Hours 09/02/18 09/03/18 09/04/18 23:59 23:59 23:59 Intake Total 3258 / 3258 968.5 / 968.5 Output Total 250 / 250 250 / 250 Balance 3008 / 3008 718.5 / 718.5 Labs (Last 48 Hours) 09/03/18 09/03/18 09/03/18 09:00 09:00 09:00 WBC 57.5 H* RBC 2.70 L Hgb 8.7 L Hct 27.3 L MCV 101.1 H MCH 32.2 H MCHC 31.9 L RDW 20.1 H RDW Differential 70.8 H Plt Count 76 L MPV TNP Neut % (Auto) Not Reportable Absolute Neuts (auto) 51.2 H Absolute Lymphs (auto) 4.00 Total Counted 100 Neutrophils % (Manual) 87 H Band Neutrophils % 2 Lymphocytes % (Manual) 7 L Monocytes % (Manual) 4 Nucleated RBC % 0.7 Diff Path Review May foll Platelet Estimate MOD DEC Hypochromasia 2+ Macrocytosis 1+ Absolute Retic 0.42 PT 19.5 H INR 1.6 APTT 30.3 Specimen Type Sample Site pH Bicarbonate Actual POC Total CO2 Base Excess O2 Saturation O2 % ABG pCO2 ABG pO2 Tu Test Respiration Rate O2 Delivery Device EPAP IPAP Blood Gas Notified Whom Blood Gas Notified Time Sodium 132 L Potassium 4.0 Chloride 96 L Carbon Dioxide 21.0 Anion Gap 15 BUN 45 H Creatinine 3.00 H Estim Creat Clear Calc 24.25 Est GFR (MDRD) Af Amer 26 L Est GFR (MDRD) Non-Af 22 L BUN/Creatinine Ratio 15.0 Glucose 144 H Lactic Acid Calcium 7.9 L Magnesium Total Bilirubin 1.60 H AST 34 ALT 27 Alkaline Phosphatase 98 Troponin I 0.046 H Total Protein 6.3 L Albumin 2.5 L Globulin 3.8 Albumin/Globulin Ratio 0.7 L Urine Color Urine Clarity Urine pH Ur Specific [place] Urine Protein Urine Glucose (UA) Urine Ketones Urine Occult Blood Urine Nitrite Urine Bilirubin Urine Urobilinogen Ur Leukocyte Esterase Urine RBC Urine WBC Ur Squamous Epith Cells Amorphous Sediment Urine Bacteria Urine Mucus MRSA (PCR) 09/03/18 09/03/18 09/03/18 09:00 11:45 15:20 WBC RBC Hgb Hct MCV MCH MCHC RDW RDW Differential Plt Count MPV Neut % (Auto) Absolute Neuts (auto) Absolute Lymphs (auto) Total Counted Neutrophils % (Manual) Band Neutrophils % Lymphocytes % (Manual) Monocytes % (Manual) Nucleated RBC % Diff Path Review Platelet Estimate Hypochromasia Macrocytosis Absolute Retic PT INR APTT Specimen Type ART Sample Site R Radial pH 7.40 Bicarbonate Actual 17.7 L POC Total CO2 19 Base Excess -7 L O2 Saturation 96 O2 % 40 ABG pCO2 28.5 L ABG pO2 82 Tu Test POS Respiration Rate 12 O2 Delivery Device Bi / C PAP EPAP 7 IPAP 14 Blood Gas Notified Whom ICU MD Blood Gas Notified Time 1522 Sodium Potassium Chloride Carbon Dioxide Anion Gap BUN Creatinine Estim Creat Clear Calc Est GFR (MDRD) Af Amer Est GFR (MDRD) Non-Af BUN/Creatinine Ratio Glucose Lactic Acid 7.4 H* Calcium Magnesium Total Bilirubin AST ALT Alkaline Phosphatase Troponin I Total Protein Albumin Globulin Albumin/Globulin Ratio Urine Color Yellow Urine Clarity Sl. Cloudy Urine pH 5.0 Ur Specific [place] 1.025 Urine Protein 30 H Urine Glucose (UA) Normal Urine Ketones 5 H Urine Occult Blood 150 H Urine Nitrite Negative Urine Bilirubin 1 H Urine Urobilinogen 4 H Ur Leukocyte Esterase 100 H Urine RBC 10-25 SEEN Urine WBC 10-25 SEEN Ur Squamous Epith Cells 0 SEEN Amorphous Sediment 1+ Urine Bacteria 1+ Urine Mucus 0 SEEN MRSA (PCR) 09/03/18 09/03/18 09/03/18 15:45 15:45 17:45 WBC RBC Hgb Hct MCV MCH MCHC RDW RDW Differential Plt Count MPV Neut % (Auto) Absolute Neuts (auto) Absolute Lymphs (auto) Total Counted Neutrophils % (Manual) Band Neutrophils % Lymphocytes % (Manual) Monocytes % (Manual) Nucleated RBC % Diff Path Review Platelet Estimate Hypochromasia Macrocytosis Absolute Retic PT Cancelled INR Cancelled APTT Cancelled Specimen Type Sample Site pH Bicarbonate Actual POC Total CO2 Base Excess O2 Saturation O2 % ABG pCO2 ABG pO2 Tu Test Respiration Rate O2 Delivery Device EPAP IPAP Blood Gas Notified Whom Blood Gas Notified Time Sodium Potassium Chloride Carbon Dioxide Anion Gap BUN Creatinine Estim Creat Clear Calc Est GFR (MDRD) Af Amer Est GFR (MDRD) Non-Af BUN/Creatinine Ratio Glucose Lactic Acid 2.9 H Calcium Magnesium Total Bilirubin AST ALT Alkaline Phosphatase Troponin I Total Protein Albumin Globulin Albumin/Globulin Ratio Urine Color Urine Clarity Urine pH Ur Specific [place] Urine Protein Urine Glucose (UA) Urine Ketones Urine Occult Blood Urine Nitrite Urine Bilirubin Urine Urobilinogen Ur Leukocyte Esterase Urine RBC Urine WBC Ur Squamous Epith Cells Amorphous Sediment Urine Bacteria Urine Mucus MRSA (PCR) Negative 09/04/18 04:30 WBC RBC Hgb Hct MCV MCH MCHC RDW RDW Differential Plt Count MPV Neut % (Auto) Absolute Neuts (auto) Absolute Lymphs (auto) Total Counted Neutrophils % (Manual) Band Neutrophils % Lymphocytes % (Manual) Monocytes % (Manual) Nucleated RBC % Diff Path Review Platelet Estimate Hypochromasia Macrocytosis Absolute Retic PT INR APTT Specimen Type Sample Site pH Bicarbonate Actual POC Total CO2 Base Excess O2 Saturation O2 % ABG pCO2 ABG pO2 Tu Test Respiration Rate O2 Delivery Device EPAP IPAP Blood Gas Notified Whom Blood Gas Notified Time Sodium 137 Potassium 3.9 Chloride 101 Carbon Dioxide 22.0 Anion Gap 14 BUN 55 H Creatinine 2.91 H Estim Creat Clear Calc 25.00 Est GFR (MDRD) Af Amer 27 L Est GFR (MDRD) Non-Af 22 L BUN/Creatinine Ratio 18.9 Glucose 159 H Lactic Acid Calcium 7.6 L Magnesium 1.9 Total Bilirubin AST ALT Alkaline Phosphatase Troponin I Total Protein Albumin Globulin Albumin/Globulin Ratio Urine Color Urine Clarity Urine pH Ur Specific [place] Urine Protein Urine Glucose (UA) Urine Ketones Urine Occult Blood Urine Nitrite Urine Bilirubin Urine Urobilinogen Ur Leukocyte Esterase Urine RBC Urine WBC Ur Squamous Epith Cells Amorphous Sediment Urine Bacteria Urine Mucus MRSA (PCR) Microbiology 09/03/18 11:45 Urine Catheter - Swartz Legionella Antigen - Final 09/03/18 11:45 Urine Catheter - Swartz Streptococcus pneumoniae Antigen (M - Final 09/03/18 14:39 Mucosa - Nose Influenza Types A,B Direct FA (LENA) - Final Clinical Impression(s) from Imaging Studies Chest X-Ray 09/03/18 10:47 IMPRESSION: I suspect focal infiltrate in the right infrahilar region. Follow-up is recommended. Electronically Signed: Sandro Scott MD at 11:23 EST Tel [phone], Service support , Chest X-Ray 09/03/18 15:46 IMPRESSION: Right-sided central venous line with tip superimposed on the distal SVC. Elevated left hemidiaphragm. Suspected medial right lower lobe infiltrate, similar to the previous study. Degenerative changes of the right shoulder joint. Electronically Signed: Manuel Jade MD at 16:45 EST , Service support , Medical Necessity - Tobacco Use Smoking Status: Former smoker Assessment/Plan All Active Problems (Last Reviewed 10/25/17 @ 10:21 by Josué Aguilar MD) Septic shock (Acute) AML (acute myeloid leukemia) (Acute) RECOMMENDATIONS: 1. Wean patient from BiPAP. 2. Wean supplemental oxygen to maintain saturations at or above 90%. 3. Formal speech therapy evaluation over concerns for dysphasia. 4. Patient to remain n.p.o. until advanced by speech therapy. 5. Continue empiric antibiotics, pending finalized infectious workup. 6. Continue to monitor blood counts daily. 7. Continue scheduled aerosol treatments while awake. IMPRESSIONS: 1. Septic shock with concerns for community-acquired pneumonia The patient initially presented with complaints of shortness of breath and cough. His plain film chest x-ray did reveal findings concerning for a right perihilar infiltrate. The patient was volume resuscitated and received broad- spectrum antibiotics. He did require transient vasopressor support to maintain hemodynamic stability. Levophed has since been weaned off and the patient remains hemodynamically stable. We will plan to continue broad-spectrum antibiotics, pending finalized infectious workup. 2. Acute hypoxic respiratory failure Likely secondary to underlying pulmonary infectious process. However, given the degree of the patient's hypoxia and acuity in onset, clinical considerations would also include that for venous thromboembolic disease. Nevertheless, the patient's elevated creatinine would preclude obtaining a CTA chest. If the patient does not respond appropriately to the treatment as outlined above, will consider empiric anticoagulation and lower extremity Dopplers studies. 3. 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 However, there was findings of de abi AML associated with anemia. The patient's prognosis remains poor. 4. Macrocytic anemia The patient's hemoglobin on presentation was noted to be 8.7 g/dL. Previously, the patient had a baseline hemoglobin in the 12-14 range. We will continue to monitor accordingly. Transfuse if hemoglobin drops below 7 g/dL. 5. Acute kidney injury Slowly improving. Likely prerenal in etiology. Anticipate improvement with volume expansion and stabilization of hemodynamics. Urine output is currently appropriate. No indication for renal replacement therapy. 6. Troponin elevation Likely secondary to demand ischemia in the setting of #1. 7. Personal history of asthma/depression/restless leg syndrome/nonischemic cardiomyopathy/obesity Complicates care, management, recovery and prognosis. Continue to hold outpatient diuretics. Physical therapy to work with patient. 8. CODE STATUS DNR CCA without intubation. Confirmed by patient and family members at the bedside. TIME: 35 minutes of critical care time, independent of procedures, was spent addressing the patient's septic shock, acute respiratory failure, chronic leukemia, anemia, acute kidney injury, troponin elevation, review of all data and collaboration with the care team. ([id number]) Code Visit [id number]: [id number] Critical care first hour
[2018-09-04 07:12] LABS: Hematocrit 24.9 % (40-54); Mean Corp Hgb Conc 32.1 g/gl (32-36); Mean Corpuscular Hgb 32.1 pg (27.0-32.0); Platelet Count 59 K/mm3 (150-450); RBC Distribution Width CV 20.5 % (11.6-14.6); RBC Distribution Width SD 71.4 fl (35.1-43.9); Red Blood Count 2.49 M/mm3 (4.6-6.2)
[2018-09-04 07:13] LABS: Differential Indicated SCAN CRITERIA MET; POSITIVE COUNT YES; POSITIVE DIFFERENTIAL NO; POSITIVE MORPHOLOGY YES
[2018-09-04 07:15] LABS: White Blood Count 36.4 K/mm3 (4.4-11.0)
--- NOTE | 2018-09-04 07:23 | PCM.PN.HOSP ---
Patient Problems: Active and Suspected Problems (Last Reviewed 10/25/17 @ 10:21 by Josué Aguilar MD) Septic shock (Acute) Subjective: Patient is a 78-year-old gentleman recently diagnosed with recurrent chronic lymphocytic leukemia who presented with progressive generalized weakness and assessment of septic shock was made attributed to suspected community-acquired pneumonia as well as acute cystitis patient was admitted to the intensive care unit managed per protocol. Patient was on Levophed which was weaned off earlier this a.m. Objective: GENERAL: Appears ill looking HEENT: Atraumatic; moist oral mucosa EYES; Anicteric, Normal Conjunctiva NECK; supple, normal thyroid, RESPIRATORY: Diminished to auscultation bilaterally, CARDIOVASCULAR: Regular S1 S2, GI: soft, non-tender, normoactive bowel sounds, : No Renal angle tenderness; EXTREMITIES: No edema, no clubbing, MUSCULOSKELETAL: No Joint Tenderness; NEURO: Awake; no lateralizing signs. SKIN: Stasis dermatitis involving both lower extremities PSYCH; Normal affect Vitals/I&O's: Vital Signs Temp Pulse Resp BP Pulse Ox 97.8 F 111 H 25 H 111/69 95 09/04/18 04:45 09/04/18 07:00 09/04/18 07:00 09/04/18 07:00 09/04/18 07:00 Oxygen Flow Rate (L/min) 6 Oxygen Delivery Method Room Air Weight: 136.7 kg Body Mass Index (BMI) 37.3 Intake and Output for Last 24 Hours 09/02/18 09/03/18 09/04/18 23:59 23:59 23:59 Intake Total 3258 / 3258 968.5 / 968.5 Output Total 250 / 250 250 / 250 Balance 3008 / 3008 718.5 / 718.5 Microbiology Past 72 Hours 09/03/18 11:45 Urine Catheter - Swartz Legionella Antigen - Final 09/03/18 11:45 Urine Catheter - Swartz Streptococcus pneumoniae Antigen (M - Final 09/03/18 14:39 Mucosa - Nose Influenza Types A,B Direct FA (LENA) - Final Laboratory Results 09/03/18 09:00: WBC 57.5 H*, RBC 2.70 L, Hgb 8.7 L, Hct 27.3 L, MCV 101.1 H, MCH 32.2 H, MCHC 31.9 L, RDW 20.1 H, RDW Differential 70.8 H, Plt Count 76 L, MPV TNP, Neut % (Auto) Not Reportable, Absolute Neuts (auto) 51.2 H, Absolute Lymphs (auto) 4.00, Total Counted 100, Neutrophils % (Manual) 87 H, Band Neutrophils % 2, Lymphocytes % (Manual) 7 L, Monocytes % (Manual) 4, Nucleated RBC % 0.7, Diff Path Review January, Platelet Estimate MOD DEC, Hypochromasia 2+, Macrocytosis 1+, Absolute Retic 0.42 09/03/18 09:00: PT 19.5 H, INR 1.6, APTT 30.3 09/03/18 09:00: Sodium 132 L, Potassium 4.0, Chloride 96 L, Carbon Dioxide 21.0, Anion Gap 15, BUN 45 H, Creatinine 3.00 H, Estim Creat Clear Calc 24.25, Est GFR (MDRD) Af Amer 26 L, Est GFR (MDRD) Non-Af 22 L, BUN/Creatinine Ratio 15.0, Glucose 144 H, Calcium 7.9 L, Total Bilirubin 1.60 H, AST 34, ALT 27, Alkaline Phosphatase 98, Troponin I 0.046 H, Total Protein 6.3 L, Albumin 2.5 L, Globulin 3.8, Albumin/Globulin Ratio 0.7 L 09/03/18 09:00: Lactic Acid 7.4 H* 09/03/18 11:45: Urine Color Yellow, Urine Clarity Sl. Cloudy, Urine pH 5.0, Ur Specific [place] 1.025, Urine Protein 30 H, Urine Glucose (UA) Normal, Urine Ketones 5 H, Urine Occult Blood 150 H, Urine Nitrite Negative, Urine Bilirubin 1 H, Urine Urobilinogen 4 H, Ur Leukocyte Esterase 100 H, Urine RBC 10-25 SEEN, Urine WBC 10-25 SEEN, Ur Squamous Epith Cells 0 SEEN, Amorphous Sediment 1+, Urine Bacteria 1+, Urine Mucus 0 SEEN 09/03/18 15:20: Specimen Type ART, Sample Site R Radial, pH 7.40, Bicarbonate Actual 17.7 L, POC Total CO2 19, Base Excess -7 L, O2 Saturation 96, O2 % 40, ABG pCO2 28.5 L, ABG pO2 82, Tu Test POS, Respiration Rate 12, O2 Delivery Device Bi / C PAP, EPAP 7, IPAP 14, Blood Gas Notified Whom ICU , Blood Gas Notified Time 1522 09/03/18 15:45: PT Cancelled, INR Cancelled, APTT Cancelled 09/03/18 15:45: Lactic Acid 2.9 H 09/03/18 17:45: MRSA (PCR) Negative 09/04/18 04:30: Sodium 137, Potassium 3.9, Chloride 101, Carbon Dioxide 22.0, Anion Gap 14, BUN 55 H, Creatinine 2.91 H, Estim Creat Clear Calc 25.00, Est GFR (MDRD) Af Amer 27 L, Est GFR (MDRD) Non-Af 22 L, BUN/Creatinine Ratio 18.9, Glucose 159 H, Calcium 7.6 L, Magnesium 1.9 09/04/18 04:30: WBC 36.4 H*, RBC 2.49 L, Hgb 8.0 L, Hct 24.9 L, MCV 100.0 H, MCH 32.1 H, MCHC 32.1, RDW 20.5 H, RDW Differential 71.4 H, Plt Count 59 L, MPV TNP, Immature Gran % (Auto) TNP, Neut % (Auto) TNP, Lymph % (Auto) TNP, [place] % (Auto) 2.5, Eos % (Auto) 0.1, Baso % (Auto) 0.1, Absolute Neuts (auto) TNP, Absolute Lymphs (auto) TNP, Total Counted Pending Current Medications Acetaminophen (Tylenol) 650 mg PO Q4H PRN PRN PRN Reason: FEVER Albuterol Sulfate (Ventolin Aerosols) 2.5 mg INHALATION Q2H PRN PRN PRN Reason: SHORTNESS OF BREATH Albuterol/Ipratropium (Duoneb) 3 ml INHALATION Q6H.RT [facility] Last Admin: 09/04/18 01:09 Dose: Not Given Duloxetine HCl (Cymbalta) 60 mg PO QHS [facility] Famotidine (Pepcid) 20 mg PO DAILY [facility] Fentanyl (Duragesic Patch) 25 mcg TRANSDERM. Q72H [facility] Ferrous Sulfate (Ferrous Sulfate) 325 mg PO BIDCM [facility] Last Admin: 09/04/18 00:33 Dose: Not Given Gabapentin (Neurontin) 100 mg PO BID [facility] Last Admin: 12/18/18 00:35 Dose: Not Given Guaifenesin (Mucinex) 1,200 mg PO BID [facility] Last Admin: 09/04/18 00:35 Dose: Not Given Sodium Chloride () 1,000 mls @ 150 mls/hr IV .Q6H40M [facility] Last Admin: 09/04/18 04:25 Dose: 150 mls/hr Piperacillin Sod/Tazobactam Sod (Zosyn) 3.375 gm in 50 mls @ 12.5 mls/hr IV Q12 [facility] Last Admin: 09/03/18 21:36 Dose: 12.5 mls/hr Norepinephrine Bitartrate 8 mg (/ Dextrose) 258 mls @ 9.68 mls/hr IV .[id number] [facility] Latanoprost (Xalatan Opthalmic) 1 drop EACH EYE QHS [facility] Last Admin: 09/03/18 21:36 Dose: 1 drop Magnesium Hydroxide (Milk Of Magnesia) 30 ml PO DAILY PRN PRN PRN Reason: Constipation Montelukast Sodium (Singulair) 10 mg PO QHS [facility] Ondansetron HCl (Zofran) 4 mg IV Q8H PRN PRN PRN Reason: NAUSEA Oxycodone HCl (Oxyir) 5 mg PO Q4H PRN PRN PRN Reason: Moderate Pain (pain scale 4-5) Pramipexole Dihydrochloride (Mirapex) 0.125 mg PO QHS [facility] Last Admin: 09/04/18 00:35 Dose: Not Given Sodium Chloride () 5 - 15 ml IV UD PRN PRN Reason: SALINE FLUSH Last Admin: 09/04/18 04:24 Dose: 10 ml Zolpidem Tartrate (Ambien (Generic)) 5 mg PO QHS PRN PRN PRN Reason: SLEEP Medical Necessity - Tobacco Use Smoking Status: Former smoker Assessment/Plan All Active Problems (Last Reviewed 10/25/17 @ 10:21 by Josué Aguilar MD) Septic shock (Acute) Patient is a 78-year-old gentleman recently diagnosed with recurrent chronic lymphocytic leukemia who presented with progressive generalized weakness and assessment of septic shock was made attributed to suspected community-acquired pneumonia as well as acute cystitis 1. Septic shock secondary to community-acquired pneumonia as well as acute cystitis: Patient has been admitted to intensive care unit managed with stroke protocol consisting of aggressive IV fluid resuscitation, broad-spectrum antibiotic therapy with ciprofloxacin as well as Zosyn in addition to vancomycin after cultures have been obtained in the ED, consultation was also placed to the leather heel breaster Dr. Giles Case discussed with team 2. Community-acquired pneumonia presented with septic shock management as discussed above 3. Acute cystitis; on antibiotic therapy cultures pending 4. Leucocytosis; Discussed with Dr Martinez; patient probably has new onset leukemia probably AML 5. History of chronic lymphocytic leukemia 6. Thrombocytopenia secondary to patient's sepsis as well as his underlying malignancy patient does not have any signs or symptoms of active bleeding for now 7. 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 Non ischemic cardiomyopathy status post AICD placement 9. Restless leg syndrome patient is on Requip 10. Dyslipidemia managed with diet only 11. Hypertension antihypertensives on hold in view of patient presentation 12. DVT prophylaxis SCDs for now avoided the use of chemoprophylaxis in view of patient thrombocytopenia Code Visit Inpatient E&M: 79524 [facility] Hosp L3
[2018-09-04 07:55] LABS: Anisocytosis 1+; Basophil 1 % (0-1); Lymphocyte 2 % (19-41); Metamyelocyte 1 % (0-1); Monocyte 3 % (0-10); Neutrophil-Segmented 93 % (47-70); Total Cells Counted 100 (MANUAL DIFF)
[2018-09-04 07:56] LABS: Platelet Estimate MOD DEC (ADEQ); Platelet Morphology LARGE; Scan Smear per Review Criteria MANUAL DIFF
[2018-09-04 07:58] LABS: Neutrophil # 33.85 X10^3/uL (2.7-7.7)
[2018-09-04 07:59] LABS: Absolute Lymphocyte Count 0.73 X10^3/ul (0.83-4.51); Absolute Neutrophil Count 33.9 X10^3/uL (2.0-7.7); Lymphocyte # 0.73 X10^3/ul (4.0)
--- NOTE | 2018-09-04 08:06 | PCM.CONS.B ---
Problem List (1) AML (acute myeloid leukemia) Status: Acute - Consult Date of Consult: 09/04/18 - Reason for Consult HPI: patient is a 70-year-old male who has a past medical history significant for hypertension, venous insufficiency ulcers of the lower extremities, cardiomyopathy due to hypertension and complete heart block as well as CLL. Patient was initially diagnosed with CLL in 2002. He did not require treatment until 2014 when he received treatment with rituximab/fludarabine between 06/08/2015 and 12/29/2015. He had remained in complete remission. He was recently seen for an office visitwhere his blood counts showed worsening anemia and thrombocytopenia. Hemoglobin was 9.4 g/dLand platelet count was 88,000 on a CBC performed on 08/29/2018. At that time the total white count was 27,000. Flow cytometry for low-grade lymphoma was negative for relapse of CLL. An acute flow panel demonstratedat 17% a total white cells had mean of phenotypic characteristics of blast cells expressing CD 11b, CD13, CD16, CD33, CD38, CD45, CD 64 and CD 65. Patient was brought to the ED yesterday by his family for a week long history of worsening fatigue, increasing shortness of breath associated with nonproductive cough, generalized weakness and loss of appetite. Initial workup demonstrated acute kidney injury as well as markedly leukocytosis with left shift and elevated lactic acid consistent with sepsis syndrome. He's been admitted to the ICU and started on broad-spectrum antibiotics as well as fluids and pressor support. He still has tachypnea but is off pressors. No unusual bleeding. He's not cognizant of the past few days, but denies nausea, vomiting and diarrhea. Allergies aspirin Allergy (Verified 09/03/18 16:56) Shortness of breath messes w/his asthma adhesive tape Adverse Reaction (Verified 04/24/18 09:05) Other TAKES SKIN OFF Current Medications Acetaminophen (Tylenol) 650 mg PO Q4H PRN PRN PRN Reason: FEVER Albuterol Sulfate (Ventolin Aerosols) 2.5 mg INHALATION Q2H PRN PRN PRN Reason: SHORTNESS OF BREATH Albuterol/Ipratropium (Duoneb) 3 ml INHALATION Q6H.RT IVY Last Admin: 09/04/18 01:09 Dose: Not Given Duloxetine HCl (Cymbalta) 60 mg PO QHS IVY Famotidine (Pepcid) 20 mg PO DAILY [facility] Fentanyl (Duragesic Patch) 25 mcg TRANSDERM. Q72H [facility] Last Admin: 09/04/18 07:31 Dose: Not Given Gabapentin (Neurontin) 100 mg PO BID [facility] Last Admin: 09/04/18 00:35 Dose: Not Given Guaifenesin (Mucinex) 1,200 mg PO BID [facility] Last Admin: 09/04/18 00:35 Dose: Not Given Sodium Chloride () 1,000 mls @ 150 mls/hr IV .Q6H40M [facility] Last Admin: 09/04/18 04:25 Dose: 150 mls/hr Piperacillin Sod/Tazobactam Sod (Zosyn) 3.375 gm in 50 mls @ 12.5 mls/hr IV Q12 [facility] Last Admin: 09/03/18 21:36 Dose: 12.5 mls/hr Norepinephrine Bitartrate 8 mg (/ Dextrose) 258 mls @ 9.68 mls/hr IV .[id number] [facility] Latanoprost (Xalatan Opthalmic) 1 drop EACH EYE QHS [facility] Last Admin: 09/03/18 21:36 Dose: 1 drop Magnesium Hydroxide (Milk Of Magnesia) 30 ml PO DAILY PRN PRN PRN Reason: Constipation Montelukast Sodium (Singulair) 10 mg PO QHS [facility] Ondansetron HCl (Zofran) 4 mg IV Q8H PRN PRN PRN Reason: NAUSEA Oxycodone HCl (Oxyir) 5 mg PO Q4H PRN PRN PRN Reason: Moderate Pain (pain scale 4-5) Pramipexole Dihydrochloride (Mirapex) 0.125 mg PO QHS [facility] Last Admin: 09/04/18 00:35 Dose: Not Given Sodium Chloride () 5 - 15 ml IV UD PRN PRN Reason: SALINE FLUSH Last Admin: 09/04/18 04:24 Dose: 10 ml Zolpidem Tartrate (Ambien (Generic)) 5 mg PO QHS PRN PRN PRN Reason: SLEEP Problem List (Last Reviewed 10/25/17 @ 10:21 by Josué Aguilar MD) Septic shock (Acute) AML (acute myeloid leukemia) (Acute) PHYSICAL EXAM: Vitals: Vital Signs Temp 97.8 F 09/04/18 04:45 Pulse 111 H 09/04/18 07:00 Resp 25 H 09/04/18 07:00 BP 111/69 09/04/18 07:00 Pulse Ox 95 09/04/18 07:00 Intake & Output 09/02/18 09/03/18 09/04/18 23:59 23:59 23:59 Intake Total 3258 / 3258 968.5 / 968.5 Output Total 250 / 250 250 / 250 Balance 3008 / 3008 718.5 / 718.5 Weight: 135.5 kg 136.7 kg Intake: IV fluid/meds 3258 / 3258 968.5 / 968.5 Output: Urine 250 / 250 250 / 250 Tachypneic-appearing and in mild respiratory distress. EYES: Sclerae are anicteric bilaterally. NECK: Supple. LYMPHATIC: There is no palpable cervical or supraclavicular adenopathy. RESPIRATORY: diminished air entry in all leslie with coarse crackles at both bases. CARDIOVASCULAR: Rhythm is regular. ABDOMEN: The abdomen is obese and nondistended. SKIN: chronic changes of stasis dermatitis and healed venous insufficiency ulcers of the lower extremities bilaterally. NEUROLOGIC: pulling unit floorhand II-XII are grossly intact. Laboratory Results - last 24 hr 09/03/18 09/03/18 09/03/18 09:00 09:00 09:00 WBC 57.5 H* RBC 2.70 L Hgb 8.7 L Hct 27.3 L MCV 101.1 H MCH 32.2 H MCHC 31.9 L RDW 20.1 H RDW Differential 70.8 H Plt Count 76 L MPV TNP Immature Gran % (Auto) Neut % (Auto) Not Reportable Lymph % (Auto) Chaves % (Auto) Eos % (Auto) Baso % (Auto) Absolute Neuts (auto) 51.2 H Absolute Lymphs (auto) 4.00 Total Counted 100 Neutrophils % (Manual) 87 H Band Neutrophils % 2 Lymphocytes % (Manual) 7 L Monocytes % (Manual) 4 Basophils % (Manual) Metamyelocytes % Nucleated RBC % 0.7 Diff Path Review May foll Platelet Estimate MOD DEC Plt Morphology Comment Hypochromasia 2+ Anisocytosis Macrocytosis 1+ Absolute Retic 0.42 PT 19.5 H INR 1.6 APTT 30.3 Specimen Type Sample Site pH Bicarbonate Actual POC Total CO2 Base Excess O2 Saturation O2 % ABG pCO2 ABG pO2 Tu Test Respiration Rate O2 Delivery Device EPAP IPAP Blood Gas Notified Whom Blood Gas Notified Time Sodium 132 L Potassium 4.0 Chloride 96 L Carbon Dioxide 21.0 Anion Gap 15 BUN 45 H Creatinine 3.00 H Estim Creat Clear Calc 24.25 Est GFR (MDRD) Af Amer 26 L Est GFR (MDRD) Non-Af 22 L BUN/Creatinine Ratio 15.0 Glucose 144 H Lactic Acid Calcium 7.9 L Magnesium Total Bilirubin 1.60 H AST 34 ALT 27 Alkaline Phosphatase 98 Troponin I 0.046 H Total Protein 6.3 L Albumin 2.5 L Globulin 3.8 Albumin/Globulin Ratio 0.7 L Urine Color Urine Clarity Urine pH Ur Specific [place] Urine Protein Urine Glucose (UA) Urine Ketones Urine Occult Blood Urine Nitrite Urine Bilirubin Urine Urobilinogen Ur Leukocyte Esterase Urine RBC Urine WBC Ur Squamous Epith Cells Amorphous Sediment Urine Bacteria Urine Mucus MRSA (PCR) 09/03/18 09/03/18 09/03/18 09:00 11:45 15:20 WBC RBC Hgb Hct MCV MCH MCHC RDW RDW Differential Plt Count MPV Immature Gran % (Auto) Neut % (Auto) Lymph % (Auto) [place]aves % (Auto) Eos % (Auto) Baso % (Auto) Absolute Neuts (auto) Absolute Lymphs (auto) Total Counted Neutrophils % (Manual) Band Neutrophils % Lymphocytes % (Manual) Monocytes % (Manual) Basophils % (Manual) Metamyelocytes % Nucleated RBC % Diff Path Review Platelet Estimate Plt Morphology Comment Hypochromasia Anisocytosis Macrocytosis Absolute Retic PT INR APTT Specimen Type ART Sample Site R Radial pH 7.40 Bicarbonate Actual 17.7 L POC Total CO2 19 Base Excess -7 L O2 Saturation 96 O2 % 40 ABG pCO2 28.5 L ABG pO2 82 Tu Test POS Respiration Rate 12 O2 Delivery Device Bi / C PAP EPAP 7 IPAP 14 Blood Gas Notified Whom ICU Blood Gas Notified Time 1522 Sodium Potassium Chloride Carbon Dioxide Anion Gap BUN Creatinine Estim Creat Clear Calc Est GFR (MDRD) Af Amer Est GFR (MDRD) Non-Af BUN/Creatinine Ratio Glucose Lactic Acid 7.4 H* Calcium Magnesium Total Bilirubin AST ALT Alkaline Phosphatase Troponin I Total Protein Albumin Globulin Albumin/Globulin Ratio Urine Color Yellow Urine Clarity Sl. Cloudy Urine pH 5.0 Ur Specific [place] 1.025 Urine Protein 30 H Urine Glucose (UA) Normal Urine Ketones 5 H Urine Occult Blood 150 H Urine Nitrite Negative Urine Bilirubin 1 H Urine Urobilinogen 4 H Ur Leukocyte Esterase 100 H Urine RBC 10-25 SEEN Urine WBC 10-25 SEEN Ur Squamous Epith Cells 0 SEEN Amorphous Sediment 1+ Urine Bacteria 1+ Urine Mucus 0 SEEN MRSA (PCR) 09/03/18 09/03/18 09/03/18 15:45 15:45 17:45 WBC RBC Hgb Hct MCV MCH MCHC RDW RDW Differential Plt Count MPV Immature Gran % (Auto) Neut % (Auto) Lymph % (Auto) [place] % (Auto) Eos % (Auto) Baso % (Auto) Absolute Neuts (auto) Absolute Lymphs (auto) Total Counted Neutrophils % (Manual) Band Neutrophils % Lymphocytes % (Manual) Monocytes % (Manual) Basophils % (Manual) Metamyelocytes % Nucleated RBC % Diff Path Review Platelet Estimate Plt Morphology Comment Hypochromasia Anisocytosis Macrocytosis Absolute Retic PT Cancelled INR Cancelled APTT Cancelled Specimen Type Sample Site pH Bicarbonate Actual POC Total CO2 Base Excess O2 Saturation O2 % ABG pCO2 ABG pO2 Tu Test Respiration Rate O2 Delivery Device EPAP IPAP Blood Gas Notified Whom Blood Gas Notified Time Sodium Potassium Chloride Carbon Dioxide Anion Gap BUN Creatinine Estim Creat Clear Calc Est GFR (MDRD) Af Amer Est GFR (MDRD) Non-Af BUN/Creatinine Ratio Glucose Lactic Acid 2.9 H Calcium Magnesium Total Bilirubin AST ALT Alkaline Phosphatase Troponin I Total Protein Albumin Globulin Albumin/Globulin Ratio Urine Color Urine Clarity Urine pH Ur Specific [place] Urine Protein Urine Glucose (UA) Urine Ketones Urine Occult Blood Urine Nitrite Urine Bilirubin Urine Urobilinogen Ur Leukocyte Esterase Urine RBC Urine WBC Ur Squamous Epith Cells Amorphous Sediment Urine Bacteria Urine Mucus MRSA (PCR) Negative 09/04/18 09/04/18 04:30 04:30 WBC 36.4 H* RBC 2.49 L Hgb 8.0 L Hct 24.9 L MCV 100.0 H MCH 32.1 H MCHC 32.1 RDW 20.5 H RDW Differential 71.4 H Plt Count 59 L MPV TNP Immature Gran % (Auto) CAREER DEVELOPMENT COORDINATOR Neut % (Auto) CAREER DEVELOPMENT COORDINATOR Lymph % (Auto) CAREER DEVELOPMENT COORDINATOR Chaves % (Auto) CAREER DEVELOPMENT COORDINATOR Eos % (Auto) CAREER DEVELOPMENT COORDINATOR Baso % (Auto) CAREER DEVELOPMENT COORDINATOR Absolute Neuts (auto) 33.9 H Absolute Lymphs (auto) 0.73 L Total Counted 100 Neutrophils % (Manual) 93 H Band Neutrophils % Lymphocytes % (Manual) 2 L Monocytes % (Manual) 3 Basophils % (Manual) 1 Metamyelocytes % 1 Nucleated RBC % Diff Path Review May foll Platelet Estimate MOD DEC Plt Morphology Comment LARGE Hypochromasia Anisocytosis 1+ Macrocytosis Absolute Retic PT INR APTT Specimen Type Sample Site pH Bicarbonate Actual POC Total CO2 Base Excess O2 Saturation O2 % ABG pCO2 ABG pO2 Tu Test Respiration Rate O2 Delivery Device EPAP IPAP Blood Gas Notified Whom Blood Gas Notified Time Sodium 137 Potassium 3.9 Chloride 101 Carbon Dioxide 22.0 Anion Gap 14 BUN 55 H Creatinine 2.91 H Estim Creat Clear Calc 25.00 Est GFR (MDRD) Af Amer 27 L Est GFR (MDRD) Non-Af 22 L BUN/Creatinine Ratio 18.9 Glucose 159 H Lactic Acid Calcium 7.6 L Magnesium 1.9 Total Bilirubin AST ALT Alkaline Phosphatase Troponin I Total Protein Albumin Globulin Albumin/Globulin Ratio Urine Color Urine Clarity Urine pH Ur Specific [place] Urine Protein Urine Glucose (UA) Urine Ketones Urine Occult Blood Urine Nitrite Urine Bilirubin Urine Urobilinogen Ur Leukocyte Esterase Urine RBC Urine WBC Ur Squamous Epith Cells Amorphous Sediment Urine Bacteria Urine Mucus MRSA (PCR) ASSESSMENT/PLAN: 1) AML. Assessment: -In summary the patient is a 78-year-old male who has a history of CLL. Recent analysis showed CLL to remain in complete remission however new finding of de abi AML associated with anemia, thrombocytopenia and sepsis. -I discussed the natural history, treated course and overall prognosis of the disease with the patient and subsequently his daughter in law. He may be a candidate for potentially life prolonging treatment with azacitidine if has more substantial recovery from the current infectious episode. However his overall prognosis remains poor. Plan: -Continued treatment for sepsis syndrome including fluids, antibiotics and respiratory support short of intubation. -Would suggest transfusing leuko-reduced but non-irradiated RBCs for hemoglobin less than 7.5-8 g/dl and leuko-reduced nonirradiated platelets for platelet count less than 15,000. -Patient to follow up with Dr. Shoemaker later next week if able to be discharged home or SNF. Inpatient hospice would be indicated if deteriorates further. -Discussed with Drs. Giles and Waylon.
--- NOTE | 2018-09-04 08:09 | CON.PCM_ITS ---
Problem List (1) AML (acute myeloid leukemia) Status: Acute - Consult Date of Consult: 09/04/18 - Reason for Consult HPI: patient is a 70-year-old male who has a past medical history significant for hypertension, venous insufficiency ulcers of the lower extremities, cardiomyopathy due to hypertension and complete heart block as well as CLL. Patient was initially diagnosed with CLL in 2002. He did not require treatment until 2014 when he received treatment with rituximab/fludarabine between 06/08/2015 and 12/29/2015. He had remained in complete remission. He was recently seen for an office visitwhere his blood counts showed worsening anemia and thrombocytopenia. Hemoglobin was 9.4 g/dLand platelet count was 88,000 on a CBC performed on 08/29/2018. At that time the total white count was 27,000. Flow cytometry for low-grade lymphoma was negative for relapse of CLL. An acute flow panel demonstratedat 17% a total white cells had mean of phenotypic characteristics of blast cells expressing CD 11b, CD13, CD16, CD33, CD38, CD45, CD 64 and CD 65. Patient was brought to the ED yesterday by his family for a week long history of worsening fatigue, increasing shortness of breath associated with nonproductive cough, generalized weakness and loss of appetite. Initial workup demonstrated acute kidney injury as well as markedly leukocytosis with left shift and elevated lactic acid consistent with sepsis syndrome. He's been admitted to the ICU and started on broad-spectrum antibiotics as well as fluids and pressor support. He still has tachypnea but is off pressors. No unusual bleeding. He's not cognizant of the past few days, but denies nausea, vomiting and diarrhea. Allergies aspirin Allergy (Verified 09/03/18 16:56) Shortness of breath messes w/his asthma adhesive tape Adverse Reaction (Verified 04/24/18 09:05) Other TAKES SKIN OFF Current Medications Acetaminophen (Tylenol) 650 mg PO Q4H PRN PRN PRN Reason: FEVER Albuterol Sulfate (Ventolin Aerosols) 2.5 mg INHALATION Q2H PRN PRN PRN Reason: SHORTNESS OF BREATH Albuterol/Ipratropium (Duoneb) 3 ml INHALATION Q6H.RT IVY Last Admin: 09/04/18 01:09 Dose: Not Given Duloxetine HCl (Cymbalta) 60 mg PO QHS IVY Famotidine (Pepcid) 20 mg PO DAILY [facility] Fentanyl (Duragesic Patch) 25 mcg TRANSDERM. Q72H [facility] Last Admin: 09/04/18 07:31 Dose: Not Given Gabapentin (Neurontin) 100 mg PO BID [facility] Last Admin: 09/04/18 00:35 Dose: Not Given Guaifenesin (Mucinex) 1,200 mg PO BID [facility] Last Admin: 09/04/18 00:35 Dose: Not Given Sodium Chloride () 1,000 mls @ 150 mls/hr IV .Q6H40M [facility] Last Admin: 09/04/18 04:25 Dose: 150 mls/hr Piperacillin Sod/Tazobactam Sod (Zosyn) 3.375 gm in 50 mls @ 12.5 mls/hr IV Q12 [facility] Last Admin: 09/03/18 21:36 Dose: 12.5 mls/hr Norepinephrine Bitartrate 8 mg (/ Dextrose) 258 mls @ 9.68 mls/hr IV .[id number] [facility] Latanoprost (Xalatan Opthalmic) 1 drop EACH EYE QHS [facility] Last Admin: 09/03/18 21:36 Dose: 1 drop Magnesium Hydroxide (Milk Of Magnesia) 30 ml PO DAILY PRN PRN PRN Reason: Constipation Montelukast Sodium (Singulair) 10 mg PO QHS [facility] Ondansetron HCl (Zofran) 4 mg IV Q8H PRN PRN PRN Reason: NAUSEA Oxycodone HCl (Oxyir) 5 mg PO Q4H PRN PRN PRN Reason: Moderate Pain (pain scale 4-5) Pramipexole Dihydrochloride (Mirapex) 0.125 mg PO QHS [facility] Last Admin: 09/04/18 00:35 Dose: Not Given Sodium Chloride () 5 - 15 ml IV UD PRN PRN Reason: SALINE FLUSH Last Admin: 09/04/18 04:24 Dose: 10 ml Zolpidem Tartrate (Ambien (Generic)) 5 mg PO QHS PRN PRN PRN Reason: SLEEP Problem List (Last Reviewed 10/25/17 @ 10:21 by Josué Aguilar MD) Septic shock (Acute) AML (acute myeloid leukemia) (Acute) PHYSICAL EXAM: Vitals: Vital Signs Temp 97.8 F 09/04/18 04:45 Pulse 111 H 09/04/18 07:00 Resp 25 H 09/04/18 07:00 BP 111/69 09/04/18 07:00 Pulse Ox 95 09/04/18 07:00 Intake & Output 09/02/18 09/03/18 09/04/18 23:59 23:59 23:59 Intake Total 3258 / 3258 968.5 / 968.5 Output Total 250 / 250 250 / 250 Balance 3008 / 3008 718.5 / 718.5 Weight: 135.5 kg 136.7 kg Intake: IV fluid/meds 3258 / 3258 968.5 / 968.5 Output: Urine 250 / 250 250 / 250 Tachypneic-appearing and in mild respiratory distress. EYES: Sclerae are anicteric bilaterally. NECK: Supple. LYMPHATIC: There is no palpable cervical or supraclavicular adenopathy. RESPIRATORY: diminished air entry in all leslie with coarse crackles at both bases. CARDIOVASCULAR: Rhythm is regular. ABDOMEN: The abdomen is obese and nondistended. SKIN: chronic changes of stasis dermatitis and healed venous insufficiency ulcers of the lower extremities bilaterally. NEUROLOGIC: line fisher II-XII are grossly intact. Laboratory Results - last 24 hr 09/03/18 09/03/18 09/03/18 09:00 09:00 09:00 WBC 57.5 H* RBC 2.70 L Hgb 8.7 L Hct 27.3 L MCV 101.1 H MCH 32.2 H MCHC 31.9 L RDW 20.1 H RDW Differential 70.8 H Plt Count 76 L MPV TNP Immature Gran % (Auto) Neut % (Auto) Not Reportable Lymph % (Auto) [place] % (Auto) Eos % (Auto) Baso % (Auto) Absolute Neuts (auto) 51.2 H Absolute Lymphs (auto) 4.00 Total Counted 100 Neutrophils % (Manual) 87 H Band Neutrophils % 2 Lymphocytes % (Manual) 7 L Monocytes % (Manual) 4 Basophils % (Manual) Metamyelocytes % Nucleated RBC % 0.7 Diff Path Review May foll Platelet Estimate MOD DEC Plt Morphology Comment Hypochromasia 2+ Anisocytosis Macrocytosis 1+ Absolute Retic 0.42 PT 19.5 H INR 1.6 APTT 30.3 Specimen Type Sample Site pH Bicarbonate Actual POC Total CO2 Base Excess O2 Saturation O2 % ABG pCO2 ABG pO2 Tu Test Respiration Rate O2 Delivery Device EPAP IPAP Blood Gas Notified Whom Blood Gas Notified Time Sodium 132 L Potassium 4.0 Chloride 96 L Carbon Dioxide 21.0 Anion Gap 15 BUN 45 H Creatinine 3.00 H Estim Creat Clear Calc 24.25 Est GFR (MDRD) Af Amer 26 L Est GFR (MDRD) Non-Af 22 L BUN/Creatinine Ratio 15.0 Glucose 144 H Lactic Acid Calcium 7.9 L Magnesium Total Bilirubin 1.60 H AST 34 ALT 27 Alkaline Phosphatase 98 Troponin I 0.046 H Total Protein 6.3 L Albumin 2.5 L Globulin 3.8 Albumin/Globulin Ratio 0.7 L Urine Color Urine Clarity Urine pH Ur Specific Swengel Urine Protein Urine Glucose (UA) Urine Ketones Urine Occult Blood Urine Nitrite Urine Bilirubin Urine Urobilinogen Ur Leukocyte Esterase Urine RBC Urine WBC Ur Squamous Epith Cells Amorphous Sediment Urine Bacteria Urine Mucus MRSA (PCR) 09/03/18 09/03/18 09/03/18 09:00 11:45 15:20 WBC RBC Hgb Hct MCV MCH MCHC RDW RDW Differential Plt Count MPV Immature Gran % (Auto) Neut % (Auto) Lymph % (Auto) [place] % (Auto) Eos % (Auto) Baso % (Auto) Absolute Neuts (auto) Absolute Lymphs (auto) Total Counted Neutrophils % (Manual) Band Neutrophils % Lymphocytes % (Manual) Monocytes % (Manual) Basophils % (Manual) Metamyelocytes % Nucleated RBC % Diff Path Review Platelet Estimate Plt Morphology Comment Hypochromasia Anisocytosis Macrocytosis Absolute Retic PT INR APTT Specimen Type ART Sample Site R Radial pH 7.40 Bicarbonate Actual 17.7 L POC Total CO2 19 Base Excess -7 L O2 Saturation 96 O2 % 40 ABG pCO2 28.5 L ABG pO2 82 Tu Test POS Respiration Rate 12 O2 Delivery Device Bi / C PAP EPAP 7 IPAP 14 Blood Gas Notified Whom ICU Blood Gas Notified Time 1522 Sodium Potassium Chloride Carbon Dioxide Anion Gap BUN Creatinine Estim Creat Clear Calc Est GFR (MDRD) Af Amer Est GFR (MDRD) Non-Af BUN/Creatinine Ratio Glucose Lactic Acid 7.4 H* Calcium Magnesium Total Bilirubin AST ALT Alkaline Phosphatase Troponin I Total Protein Albumin Globulin Albumin/Globulin Ratio Urine Color Yellow Urine Clarity Sl. Cloudy Urine pH 5.0 Ur Specific Swengel 1.025 Urine Protein 30 H Urine Glucose (UA) Normal Urine Ketones 5 H Urine Occult Blood 150 H Urine Nitrite Negative Urine Bilirubin 1 H Urine Urobilinogen 4 H Ur Leukocyte Esterase 100 H Urine RBC 10-25 SEEN Urine WBC 10-25 SEEN Ur Squamous Epith Cells 0 SEEN Amorphous Sediment 1+ Urine Bacteria 1+ Urine Mucus 0 SEEN MRSA (PCR) 09/03/18 09/03/18 09/03/18 15:45 15:45 17:45 WBC RBC Hgb Hct MCV MCH MCHC RDW RDW Differential Plt Count MPV Immature Gran % (Auto) Neut % (Auto) Lymph % (Auto) [place] % (Auto) Eos % (Auto) Baso % (Auto) Absolute Neuts (auto) Absolute Lymphs (auto) Total Counted Neutrophils % (Manual) Band Neutrophils % Lymphocytes % (Manual) Monocytes % (Manual) Basophils % (Manual) Metamyelocytes % Nucleated RBC % Diff Path Review Platelet Estimate Plt Morphology Comment Hypochromasia Anisocytosis Macrocytosis Absolute Retic PT Cancelled INR Cancelled APTT Cancelled Specimen Type Sample Site pH Bicarbonate Actual POC Total CO2 Base Excess O2 Saturation O2 % ABG pCO2 ABG pO2 Tu Test Respiration Rate O2 Delivery Device EPAP IPAP Blood Gas Notified Whom Blood Gas Notified Time Sodium Potassium Chloride Carbon Dioxide Anion Gap BUN Creatinine Estim Creat Clear Calc Est GFR (MDRD) Af Amer Est GFR (MDRD) Non-Af BUN/Creatinine Ratio Glucose Lactic Acid 2.9 H Calcium Magnesium Total Bilirubin AST ALT Alkaline Phosphatase Troponin I Total Protein Albumin Globulin Albumin/Globulin Ratio Urine Color Urine Clarity Urine pH Ur Specific [place] Urine Protein Urine Glucose (UA) Urine Ketones Urine Occult Blood Urine Nitrite Urine Bilirubin Urine Urobilinogen Ur Leukocyte Esterase Urine RBC Urine WBC Ur Squamous Epith Cells Amorphous Sediment Urine Bacteria Urine Mucus MRSA (PCR) Negative 09/04/18 09/04/18 04:30 04:30 WBC 36.4 H* RBC 2.49 L Hgb 8.0 L Hct 24.9 L MCV 100.0 H MCH 32.1 H MCHC 32.1 RDW 20.5 H RDW Differential 71.4 H Plt Count 59 L MPV TNP Immature Gran % (Auto) [employer] SAL[employer] Neut % (Auto) [employer]ANT Lymph % (Auto) [employer] SAL[employer] CONSULTANT [place] % (Auto) [employer] SALES CON[employer]ANT Eos % (Auto) [employer] SALES CONSULTANT Baso % (Auto) [employer] SALES CONS[employer]ANT Absolute Neuts (auto) 33.9 H Absolute Lymphs (auto) 0.73 L Total Counted 100 Neutrophils % (Manual) 93 H Band Neutrophils % Lymphocytes % (Manual) 2 L Monocytes % (Manual) 3 Basophils % (Manual) 1 Metamyelocytes % 1 Nucleated RBC % Diff Path Review May foll Platelet Estimate MOD DEC Plt Morphology Comment LARGE Hypochromasia Anisocytosis 1+ Macrocytosis Absolute Retic PT INR APTT Specimen Type Sample Site pH Bicarbonate Actual POC Total CO2 Base Excess O2 Saturation O2 % ABG pCO2 ABG pO2 Tu Test Respiration Rate O2 Delivery Device EPAP IPAP Blood Gas Notified Whom Blood Gas Notified Time Sodium 137 Potassium 3.9 Chloride 101 Carbon Dioxide 22.0 Anion Gap 14 BUN 55 H Creatinine 2.91 H Estim Creat Clear Calc 25.00 Est GFR (MDRD) Af Amer 27 L Est GFR (MDRD) Non-Af 22 L BUN/Creatinine Ratio 18.9 Glucose 159 H Lactic Acid Calcium 7.6 L Magnesium 1.9 Total Bilirubin AST ALT Alkaline Phosphatase Troponin I Total Protein Albumin Globulin Albumin/Globulin Ratio Urine Color Urine Clarity Urine pH Ur Specific [place] Urine Protein Urine Glucose (UA) Urine Ketones Urine Occult Blood Urine Nitrite Urine Bilirubin Urine Urobilinogen Ur Leukocyte Esterase Urine RBC Urine WBC Ur Squamous Epith Cells Amorphous Sediment Urine Bacteria Urine Mucus MRSA (PCR) ASSESSMENT/PLAN: 1) AML. Assessment: -In summary the patient is a 78-year-old male who has a history of CLL. Recent analysis showed CLL to remain in complete remission however new finding of de abi AML associated with anemia, thrombocytopenia and sepsis. -I discussed the natural history, treated course and overall prognosis of the disease with the patient and subsequently his daughter in law. He may be a candidate for potentially life prolonging treatment with azacitidine if has more substantial recovery from the current infectious episode. However his overall prognosis remains poor. Plan: -Continued treatment for sepsis syndrome including fluids, antibiotics and respiratory support short of intubation. -Would suggest transfusing leuko-reduced but non-irradiated RBCs for hemoglobin less than 7.5-8 g/dl and leuko-reduced nonirradiated platelets for platelet count less than 15,000. -Patient to follow up with Dr. Shoemaker later next week if able to be discharged home or SNF. Inpatient hospice would be indicated if deteriorates further. -Discussed with Drs. Giles and Waylon.
[2018-09-04] MEDS: Piperacil/Tazobactam 3.375 GM/50 ML ML IV ×2 (10:19→21:48)
--- NOTE | 2018-09-04 10:30 | NURSING ---
CXR taken. bilat Venous studies bilat legs in progress
--- NOTE | 2018-09-04 10:52 | VDLE_ITS ---
Reason For Study: SOB RIGHT LEFT GSV is normal. GSV is normal. FV is compressible, spontaneous, phasic, CFV is compressible, spontaneous, phasic, competent and demonstrates normal competent, and demonstrates normal augmentation. augmentation. T/P Trunk is compressible. FV is compressible, spontaneous, phasic, PTV is compressible. competent and demonstrates normal RT PerV is compressible. augmentation. CFV is compressible with bright intraluminal POP V is compressible, spontaneous, phasic, echoes consistent with chronic DVT. competent and demonstrates normal Pop V is compressible with reflux upon augmentation. augmentation. T/P Trunk is compressible. Procedure PTV is compressible. Exam performed portable in ICU/CCU. LT PerV is compressible. The exam was of fair technical quality due to pt positioning. A preliminary report was called and/or faxed to the pt's RN. Interpretation Summary No evidence for acute deep venous thrombosis bilateral lower extremities Probable small degree of chronic thrombosis right common femoral vein Incompetent right popliteal vein Patent and compressible bilateral great saphenous veins Ordering Physician: Alvarez Giles D.O. Performed By: Silvio Diana RVT
--- NOTE | 2018-09-04 10:56 | ECHOCS_ITS ---
Reason For Study: DYSPNEA/SOB Procedure This was a 2D Doppler, Color Flow transthoracic echocardiogram. The study was technically difficult. Exam performed portable in patient room. Left Ventricle Normal LV size. Left ventricular systolic function is normal. The estimated ejection fraction is 60+ %. No regional wall motion abnormalities noted. Atria Normal left atrium. Normal right atrium. Mitral Valve Mitral valve not well visualized. Tricuspid Valve The tricuspid valve is not well visualized. Aortic Valve The aortic valve is not well visualized. Great Vessels Normal aortic root. Pericardium/Pleural No pericardial effusion. Medication Diluted definity 4.5ml given slow IV push to enhance endocardial definition. MMode/2D Measurements & Calculations LVIDd: 5.1 cm IVSd: 0.98 cm Ao root diam: 3.3 cm LVIDs: 3.1 cm LVPWd: 0.91 cm RVDd: 4.2 cm FS: 38.2 % LAV(MOD-bp): 51.9 ml LA A4 area: 18.6 cm2 LA dimension(2D): 4.9 cm LAV(MOD-bp) Indexed: 19.9 ml/m2 LAV(MOD-sp2): 51.9 ml LAV(MOD-sp4): 43.3 ml RA A4 area: 20.0 cm2 Time Measurements MV dec time: 0.20 sec Doppler Measurements & Calculations MV E max gosia: 100.2 cm/sec Ao V2 max: 147.5 cm/sec LV V1 max: 131.4 cm/sec MV A max gosia: 60.1 cm/sec Ao max P.8 mmHg LV V1 max P.9 mmHg MV E/A: 1.7 PA V2 max: 97.3 cm/sec Interpretation Summary Normal LV size. Left ventricular systolic function is normal. The estimated ejection fraction is 60+ %. Contrast injection was performed. The study was technically difficult. Ordering Physician: Alvarez NessD.O. Referring Physician: LIZETTE SAEED Performed By: Saadia Patton RDCS
--- NOTE | 2018-09-04 11:00 | RAD_ITS ---
STUDY: X-RAY CHEST REASON FOR EXAM: Male, 78 years old. Shortness of breath. TECHNIQUE: Single AP portable view of the chest. COMPARISON: Comparison is made with prior study dated September 03, 2018. FINDINGS: A right-sided central venous catheter is seen with the tip in the midportion of the superior vena cava. EKG electrodes are seen. Stable elevation of the left hemidiaphragm. Since prior study, there has been progressive infiltration in the right lower lobe and right midlung. Increased markings are also seen in the left lower lobe at this time. There is blunting of both costophrenic angles. Normal size heart. A left-sided ICD is seen. Normal mediastinum and hernandez. Normal visualized pulmonary arteries. Normal visualized aortic arch and descending thoracic aorta. Normal visualized thoracic spine. Prior rotator cuff surgery of the right shoulder. There is no demonstrated abnormality of the visualized soft tissue structures of the upper abdomen. RAD/Chest 1 View (Portable) IMPRESSION: Progressive infiltrates in both lower lobes worse on the right side as compared to prior study. Electronically Signed: Sandro Scott MD at 11:20 EST Tel [phone], Service support ,
[2018-09-04] MEDS: LORazepam 2 MG/ML Syringe 0.5 MG IV (11:03)
--- NOTE | 2018-09-04 11:56 | CASEMGMT ---
Pt is on bipap at present, SW spoke w/ in ICU waiting room. states that prior to admission, she and pt live home, they stay on the first floor of their home. reports three children and a nephew who all live local. Pt uses 2 arm rest canes, other than that he uses no DME, no home O2. Pt drives, sponge bathes, does his own medication. Pt's cooks and cleans. Pt has [place] [employer] for medical and prescription coverage. Pt's PCP is Dr. Shelby, and [facility] is their pharmacy. As per , pt has no history of SNF placement or of home health care. At this time it is too soon to know what the discharge plan will be. SW explained that SW will continue to follow for discharge planning when appropriate. states understanding. Also, did bring in LW/POA forms, and copies are on the chart. ELISA Phillips, APPOINTMENT COORDINATOR
--- NOTE | 2018-09-04 12:00 | NURSING ---
pt w/increasing agitation despite ativan. cont to pull at bipap mask/iv/tl. pt is yelling at his to 'get rid of this stuff and I have to go to the bathroom constant reminders re perdue and need for bipap are unsuccessful. bipap removed and pt placed on 4lnc. He immediately has respers of 38, becomes diaphoretic w/gasping breaths. He cont to try to get out of the chair. attempt to return to bed w/3 assist. once upright, he is audibly gasping and becoming cyanotic. He is unable to move his feet. lifted to bed positioned w/HOB at 45degrees. slt improvement in respers, no improvement in agitation. cont to pull at lines. Dr Giles notified. present in pt room. orders recd. Dr. Connors notified via phone. Pt's given cond report. questions answered. support given.
[2018-09-04] MEDS: Furosemide 40 MG/4 ML Vial IV (12:50)
[2018-09-04] MEDS: Ipratropium/Albuterol Sulfate 3 ML AMPUL.NEB INHALATION (13:22)
--- NOTE | 2018-09-04 13:45 | NURSING ---
echo in progress
[2018-09-04 14:50] LABS: Pathologist Review Reviewed
[2018-09-04 14:59] LABS: Pathologist Review Reviewed
--- NOTE | 2018-09-04 15:44 | CHAPLAIN ---
Type of Pastoral Visit _x__ Initial Visit ___ Follow-up Visit ___ On-call Visit ___ General Patient Visit ___ Spiritual Assessment ___ Family Conference ___ Bereavement ___ Rapid Response ___ Code Blue ___ Other (describe below) Pastoral Care Referral From ___ Patient _x__ Family _x__ Nurse ___ Physician ___ Pie Dough Roller ___ Dust Collector Operator ___ Other (describe below) Sacrament/Intervention ___ Active listening ___ Anointing ___ Judaism ___ Bereavement ___ Communion _x__ Rivka exploration ___ _x__ Life review _x__ Prayer ___ Reconciliation ___ Sacrament of Sick _x__ Supportive presence ___ Wedding ___ Other (describe below) Pastoral Comments met with spouse of patient and sat with her in the waiting area; was present when RN talked with spouse about condition of pt; offered support and to call the orthodoxy of spouse
[2018-09-04] MEDS: Albuterol 2.5 MG/3 ML VIAL.NEB. INHALATION (16:38)
--- NOTE | 2018-09-04 17:00 | NURSING ---
education re chronic illness deferred till pt acute illness resolving
[2018-09-04] MEDS: Latanoprost 0.005% 1 Bottle 1 DRP EACH EYE (21:48)
[2018-09-04] MEDS: Acetaminophen 650 MG Suppository RECTAL (21:48)
[2018-09-04] MEDS: Haloperidol Lactate 5 MG/ML Vial IV (22:53)
[2018-09-05] VITALS (13 sets, daily range): BP systolic 68–160; BP diastolic 45–92; PULSE 71–120; RESP 12–41; TEMP 36.3; O2SAT 79–96
[2018-09-05 04:43] LABS: Hematocrit 27.2 % (40-54); Hemoglobin 8.7 g/dl (13.0-16.5); Mean Corpuscular Hgb 31.9 pg (27.0-32.0); Mean Corpuscular Volume 99.6 fL (80-94); Platelet Count 67 K/mm3 (150-450); RBC Distribution Width CV 20.8 % (11.6-14.6); RBC Distribution Width SD 72.7 fl (35.1-43.9); Red Blood Count 2.73 M/mm3 (4.6-6.2)
[2018-09-05 04:48] LABS: Anion Gap 17 (5-15); BUN 70 mg/dL (7-18); BUN/Creat Ratio 22.3 RATIO (10-20); Calcium,Total 8.1 mg/dL (8.5-10.1); Chloride 105 mmol/L (98-107); Creatinine, Serum 3.14 mg/dL (0.70-1.30); EST Glomerular Filtration Rate 21 mL/min (>60); Est Glom Filt Rate - Afr Amer 25 mL/min (>60); Estimated Creatinine Clearance 23.17 ml/min; Glucose 132 mg/dL (74-106); Potassium 3.9 mmol/L (3.5-5.1); Sodium Level 141 mmol/L (136-145)
[2018-09-05 05:04] LABS: Differential Indicated MANUAL DIFF; POSITIVE COUNT YES; POSITIVE DIFFERENTIAL NO; POSITIVE MORPHOLOGY YES
[2018-09-05 05:07] LABS: White Blood Count 34.8 K/mm3 (4.4-11.0)
[2018-09-05 05:16] LABS: Neutrophil-Band 7 % (0-5); Neutrophil-Segmented 79 % (47-70); Total Cells Counted 100 (MANUAL DIFF)
[2018-09-05 05:17] LABS: Lymphocyte 8 % (19-41); Metamyelocyte 3 % (0-1); Monocyte 3 % (0-10)
[2018-09-05 05:18] LABS: Hypochromasia 2+; Microcytosis 1+; Platelet Estimate MOD DEC (ADEQ); Polychromasia 1+
[2018-09-05 05:19] LABS: Platelet Morphology LARGE
[2018-09-05 05:38] LABS: Absolute Lymphocyte Count 2.78 X10^3/ul (0.83-4.51); Absolute Neutrophil Count 29.9 X10^3/uL (2.0-7.7); Absolute Nucleated RBC Count 0.69 10^3/uL (0-5)
[2018-09-05] MEDS: 0.9% NaCl Peripheral Flush Adult/Peds IV ×2 (06:05→08:16)
[2018-09-05] MEDS: Ipratropium/Albuterol Sulfate 3 ML AMPUL.NEB INHALATION (06:58)
--- NOTE | 2018-09-05 07:03 | PCM.PN.INT ---
Subjective: The patient was seen and examined at the bedside this morning. Events from the last 24 hours have been reviewed. The patient did have an isolated fever overnight to 38.6 ?C. He remains tachycardic but is hemodynamically stable. The patient has become exceedingly altered in mentation, particularly overnight and did require a one-time dose of Haldol. He has been intermittently tolerant of BiPAP therapy. Over the course of the morning hours, the patient continued to deteriorate from a clinical status. His FiO2 requirement continued to increase. He remained exceedingly anxious and agitated. The patient was clearly in respiratory distress and experiencing significant work of breathing. I met with the patient's and family at the bedside and made them aware of the events over the last 12 hours. I discussed options for moving forward including resending the patient's DNR CCA status moving forward with intubation or transitioning the patient to comfort measures. The patient's and family elected to pursue comfort care measures. Therefore, the patient's CODE STATUS was updated to DNR CC. The patient was removed from BiPAP and placed on nasal cannula. He was medicated appropriately for anxiety and shortness of breath/air hunger. After a very short time, the patient peacefully with family at the bedside. Time of was 0956 on September 05, 2018. Objective: The patient's most recent lab work, culture data and imaging studies have all been personally reviewed. Strep and urine Legionella antigens are negative. Rapid influenza screen was negative. Blood and urine cultures are pending. Sputum culture is also pending. Surface echocardiogram dated October 2017 revealed normal LV size and function with an ejection fraction of 53%. Surface echocardiogram completed September 03 revealed normal LV size and function with an ejection fraction of 60%. Lower extremity Doppler study revealed no evidence for DVT. Plain film chest x-ray revealed progressive bilateral infiltrates. General: Confused, Disoriented, - - Clearly distressed on BiPAP. HEENT: Atraumatic, PERRLA, Normocephalic Oral: Dry Mucosa Neck: Supple, No Nodes, Trachea Midline Lungs: Diminished, Rhonchi, Short of Breath, Tachypneic, Using Accessory Muscles Cardiovascular: Normal S1, Normal S2, No murmurs, Tachycardic Abdomen: Bowel Sounds Present, Soft, Non Tender, Obese Extremities: No clubbing, No cyanosis, No edema Skin: No breakdown Musculoskeletal: No Muscle Wasting Neurological: Neuro grossly intact Psych/Mental Status: Anxious, Restless Vital Signs Temp Pulse Resp BP Pulse Ox 36.3 C L 120 H 38 H 100/87 H 92 09/05/18 00:00 09/05/18 06:00 09/05/18 06:00 09/05/18 06:00 09/05/18 06:00 Oxygen Flow Rate (L/min) 4 Oxygen Delivery Method Bi-pap Weight: 291 lb 7.218 oz Body Mass Index (BMI) 37.3 Intake and Output for Last 24 Hours 09/03/18 09/04/18 09/05/18 23:59 23:59 23:59 Intake Total 3258 / 3258 2070.5 / 2070.5 159 / 159 Output Total 250 / 250 950 / 950 350 / 350 Balance 3008 / 3008 1120.5 / 1120.5 -191 / -191 Labs (Last 48 Hours) 09/03/18 09/03/18 09/03/18 09:00 09:00 09:00 WBC 57.5 H* RBC 2.70 L Hgb 8.7 L Hct 27.3 L MCV 101.1 H MCH 32.2 H MCHC 31.9 L RDW 20.1 H RDW Differential 70.8 H Plt Count 76 L MPV TNP Immature Gran % (Auto) Neut % (Auto) Not Reportable Lymph % (Auto) Slope % (Auto) Eos % (Auto) Baso % (Auto) Absolute Neuts (auto) 51.2 H Absolute Lymphs (auto) 4.00 Total Counted 100 Neutrophils % (Manual) 87 H Band Neutrophils % 2 Lymphocytes % (Manual) 7 L Monocytes % (Manual) 4 Basophils % (Manual) Metamyelocytes % Nucleated RBC % 0.7 Diff Path Review Reviewed Platelet Estimate MOD DEC Plt Morphology Comment Polychromasia Hypochromasia 2+ Anisocytosis Microcytosis Macrocytosis 1+ Absolute Retic 0.42 PT 19.5 H INR 1.6 APTT 30.3 Specimen Type Sample Site pH Bicarbonate Actual POC Total CO2 Base Excess O2 Saturation O2 % ABG pCO2 ABG pO2 Tu Test Respiration Rate O2 Delivery Device EPAP IPAP Blood Gas Notified Whom Blood Gas Notified Time Sodium 132 L Potassium 4.0 Chloride 96 L Carbon Dioxide 21.0 Anion Gap 15 BUN 45 H Creatinine 3.00 H Estim Creat Clear Calc 24.25 Est GFR (MDRD) Af Amer 26 L Est GFR (MDRD) Non-Af 22 L BUN/Creatinine Ratio 15.0 Glucose 144 H Lactic Acid Calcium 7.9 L Magnesium Total Bilirubin 1.60 H AST 34 ALT 27 Alkaline Phosphatase 98 Troponin I 0.046 H Total Protein 6.3 L Albumin 2.5 L Globulin 3.8 Albumin/Globulin Ratio 0.7 L Urine Color Urine Clarity Urine pH Ur Specific [place] Urine Protein Urine Glucose (UA) Urine Ketones Urine Occult Blood Urine Nitrite Urine Bilirubin Urine Urobilinogen Ur Leukocyte Esterase Urine RBC Urine WBC Ur Squamous Epith Cells Amorphous Sediment Urine Bacteria Urine Mucus MRSA (PCR) 09/03/18 09/03/18 09/03/18 09:00 11:45 15:20 WBC RBC Hgb Hct MCV MCH MCHC RDW RDW Differential Plt Count MPV Immature Gran % (Auto) Neut % (Auto) Lymph % (Auto) Slope % (Auto) Eos % (Auto) Baso % (Auto) Absolute Neuts (auto) Absolute Lymphs (auto) Total Counted Neutrophils % (Manual) Band Neutrophils % Lymphocytes % (Manual) Monocytes % (Manual) Basophils % (Manual) Metamyelocytes % Nucleated RBC % Diff Path Review Platelet Estimate Plt Morphology Comment Polychromasia Hypochromasia Anisocytosis Microcytosis Macrocytosis Absolute Retic PT INR APTT Specimen Type ART Sample Site R Radial pH 7.40 Bicarbonate Actual 17.7 L POC Total CO2 19 Base Excess -7 L O2 Saturation 96 O2 % 40 ABG pCO2 28.5 L ABG pO2 82 Tu Test POS Respiration Rate 12 O2 Delivery Device Bi / C PAP EPAP 7 IPAP 14 Blood Gas Notified Whom ICU Blood Gas Notified Time 1522 Sodium Potassium Chloride Carbon Dioxide Anion Gap BUN Creatinine Estim Creat Clear Calc Est GFR (MDRD) Af Amer Est GFR (MDRD) Non-Af BUN/Creatinine Ratio Glucose Lactic Acid 7.4 H* Calcium Magnesium Total Bilirubin AST ALT Alkaline Phosphatase Troponin I Total Protein Albumin Globulin Albumin/Globulin Ratio Urine Color Yellow Urine Clarity Sl. Cloudy Urine pH 5.0 Ur Specific [place] 1.025 Urine Protein 30 H Urine Glucose (UA) Normal Urine Ketones 5 H Urine Occult Blood 150 H Urine Nitrite Negative Urine Bilirubin 1 H Urine Urobilinogen 4 H Ur Leukocyte Esterase 100 H Urine RBC 10-25 SEEN Urine WBC 10-25 SEEN Ur Squamous Epith Cells 0 SEEN Amorphous Sediment 1+ Urine Bacteria 1+ Urine Mucus 0 SEEN MRSA (PCR) 09/03/18 09/03/18 09/03/18 15:45 15:45 17:45 WBC RBC Hgb Hct MCV MCH MCHC RDW RDW Differential Plt Count MPV Immature Gran % (Auto) Neut % (Auto) Lymph % (Auto) Slope % (Auto) Eos % (Auto) Baso % (Auto) Absolute Neuts (auto) Absolute Lymphs (auto) Total Counted Neutrophils % (Manual) Band Neutrophils % Lymphocytes % (Manual) Monocytes % (Manual) Basophils % (Manual) Metamyelocytes % Nucleated RBC % Diff Path Review Platelet Estimate Plt Morphology Comment Polychromasia Hypochromasia Anisocytosis Microcytosis Macrocytosis Absolute Retic PT Cancelled INR Cancelled APTT Cancelled Specimen Type Sample Site pH Bicarbonate Actual POC Total CO2 Base Excess O2 Saturation O2 % ABG pCO2 ABG pO2 Tu Test Respiration Rate O2 Delivery Device EPAP IPAP Blood Gas Notified Whom Blood Gas Notified Time Sodium Potassium Chloride Carbon Dioxide Anion Gap BUN Creatinine Estim Creat Clear Calc Est GFR (MDRD) Af Amer Est GFR (MDRD) Non-Af BUN/Creatinine Ratio Glucose Lactic Acid 2.9 H Calcium Magnesium Total Bilirubin AST ALT Alkaline Phosphatase Troponin I Total Protein Albumin Globulin Albumin/Globulin Ratio Urine Color Urine Clarity Urine pH Ur Specific [place] Urine Protein Urine Glucose (UA) Urine Ketones Urine Occult Blood Urine Nitrite Urine Bilirubin Urine Urobilinogen Ur Leukocyte Esterase Urine RBC Urine WBC Ur Squamous Epith Cells Amorphous Sediment Urine Bacteria Urine Mucus MRSA (PCR) Negative 09/04/18 09/04/18 09/04/18 04:30 04:30 11:35 WBC 36.4 H* RBC 2.49 L Hgb 8.0 L Hct 24.9 L MCV 100.0 H MCH 32.1 H MCHC 32.1 RDW 20.5 H RDW Differential 71.4 H Plt Count 59 L MPV TNP Immature Gran % (Auto) [employer] Neut % (Auto) [employer] Lymph % (Auto) [employer] Slope % (Auto) [employer] Eos % (Auto) [employer] Baso % (Auto) [employer] Absolute Neuts (auto) 33.9 H Absolute Lymphs (auto) 0.73 L Total Counted 100 Neutrophils % (Manual) 93 H Band Neutrophils % Lymphocytes % (Manual) 2 L Monocytes % (Manual) 3 Basophils % (Manual) 1 Metamyelocytes % 1 Nucleated RBC % Diff Path Review Reviewed Platelet Estimate MOD DEC Plt Morphology Comment LARGE Polychromasia Hypochromasia Anisocytosis 1+ Microcytosis Macrocytosis Absolute Retic PT INR APTT Specimen Type Sample Site pH Bicarbonate Actual POC Total CO2 Base Excess O2 Saturation O2 % ABG pCO2 ABG pO2 Tu Test Respiration Rate O2 Delivery Device EPAP IPAP Blood Gas Notified Whom Blood Gas Notified Time Sodium 137 Potassium 3.9 Chloride 101 Carbon Dioxide 22.0 Anion Gap 14 BUN 55 H Creatinine 2.91 H Estim Creat Clear Calc 25.00 Est GFR (MDRD) Af Amer 27 L Est GFR (MDRD) Non-Af 22 L BUN/Creatinine Ratio 18.9 Glucose 159 H Lactic Acid Calcium 7.6 L Magnesium 1.9 Total Bilirubin AST ALT Alkaline Phosphatase Troponin I 0.025 Total Protein Albumin Globulin Albumin/Globulin Ratio Urine Color Urine Clarity Urine pH Ur Specific [place] Urine Protein Urine Glucose (UA) Urine Ketones Urine Occult Blood Urine Nitrite Urine Bilirubin Urine Urobilinogen Ur Leukocyte Esterase Urine RBC Urine WBC Ur Squamous Epith Cells Amorphous Sediment Urine Bacteria Urine Mucus MRSA (PCR) 09/05/18 09/05/18 04:20 04:20 WBC 34.8 H* RBC 2.73 L Hgb 8.7 L Hct 27.2 L MCV 99.6 H MCH 31.9 MCHC 32.0 RDW 20.8 H RDW Differential 72.7 H Plt Count 67 L MPV Immature Gran % (Auto) Neut % (Auto) Not Reportable Lymph % (Auto) [place] % (Auto) Eos % (Auto) Baso % (Auto) Absolute Neuts (auto) 29.9 H Absolute Lymphs (auto) 2.78 Total Counted 100 Neutrophils % (Manual) 79 H Band Neutrophils % 7 H Lymphocytes % (Manual) 8 L Monocytes % (Manual) 3 Basophils % (Manual) Metamyelocytes % 3 H Nucleated RBC % 2.0 Diff Path Review May foll Platelet Estimate MOD DEC Plt Morphology Comment LARGE Polychromasia 1+ Hypochromasia 2+ Anisocytosis Microcytosis 1+ Macrocytosis Absolute Retic 0.69 PT INR APTT Specimen Type Sample Site pH Bicarbonate Actual POC Total CO2 Base Excess O2 Saturation O2 % ABG pCO2 ABG pO2 Tu Test Respiration Rate O2 Delivery Device EPAP IPAP Blood Gas Notified Whom Blood Gas Notified Time Sodium 141 Potassium 3.9 Chloride 105 Carbon Dioxide 19.0 L Anion Gap 17 H BUN 70 H Creatinine 3.14 H Estim Creat Clear Calc 23.17 Est GFR (MDRD) Af Amer 25 L Est GFR (MDRD) Non-Af 21 L BUN/Creatinine Ratio 22.3 H Glucose 132 H Lactic Acid Calcium 8.1 L Magnesium Total Bilirubin AST ALT Alkaline Phosphatase Troponin I Total Protein Albumin Globulin Albumin/Globulin Ratio Urine Color Urine Clarity Urine pH Ur Specific [place] Urine Protein Urine Glucose (UA) Urine Ketones Urine Occult Blood Urine Nitrite Urine Bilirubin Urine Urobilinogen Ur Leukocyte Esterase Urine RBC Urine WBC Ur Squamous Epith Cells Amorphous Sediment Urine Bacteria Urine Mucus MRSA (PCR) Microbiology 09/04/18 10:00 Sputum, Expectorated/Coughed Gram Stain - Final 09/03/18 11:45 Urine Catheter - Swartz Urine Culture - Preliminary Culture exhibits no growth. 09/03/18 11:45 Urine Catheter - Swartz Legionella Antigen - Final 09/03/18 11:45 Urine Catheter - Swartz Streptococcus pneumoniae Antigen (M - Final 09/03/18 14:39 Mucosa - Nose Influenza Types A,B Direct FA (LENA) - Final Clinical Impression(s) from Imaging Studies Chest X-Ray 09/03/18 10:47 IMPRESSION: I suspect focal infiltrate in the right infrahilar region. Follow-up is recommended. Electronically Signed: Sandro Scott MD at 11:23 EST Tel [phone], Service support , Chest X-Ray 09/03/18 15:46 IMPRESSION: Right-sided central venous line with tip superimposed on the distal SVC. Elevated left hemidiaphragm. Suspected medial right lower lobe infiltrate, similar to the previous study. Degenerative changes of the right shoulder joint. Electronically Signed: Manuel Jade MD at 16:45 EST , Service support , Chest X-Ray 09/04/18 11:00 IMPRESSION: Progressive infiltrates in both lower lobes worse on the right side as compared to prior study. Electronically Signed: Sandro Scott MD at 11:20 EST Tel [phone], Service support , Clinical Impression(s) from Imaging Studies Chest X-Ray 09/03/18 10:47 IMPRESSION: I suspect focal infiltrate in the right infrahilar region. Follow-up is recommended. Electronically Signed: Sandro Scott MD at 11:23 EST Tel [phone], Service support , Chest X-Ray 09/03/18 15:46 IMPRESSION: Right-sided central venous line with tip superimposed on the distal SVC. Elevated left hemidiaphragm. Suspected medial right lower lobe infiltrate, similar to the previous study. Degenerative changes of the right shoulder joint. Electronically Signed: Manuel Jade MD at 16:45 EST , Service support , Chest X-Ray 09/04/18 11:00 IMPRESSION: Progressive infiltrates in both lower lobes worse on the right side as compared to prior study. Electronically Signed: Sandro Scott MD at 11:20 EST Tel [phone], Service support , Medical Necessity - Tobacco Use Smoking Status: Former smoker Assessment/Plan All Active Problems (Last Reviewed 10/25/17 @ 10:21 by Josué Aguilar MD) Septic shock (Acute) AML (acute myeloid leukemia) (Acute) RECOMMENDATIONS: 1. Following a discussion with the family at the bedside, the decision was made to pursue comfort care measures. 2. CODE STATUS updated to DNR CC IMPRESSIONS: 1. Septic shock with concerns for community-acquired pneumonia The patient initially presented with complaints of shortness of breath and cough. His plain film chest x-ray did reveal findings concerning for a right perihilar infiltrate. The patient was volume resuscitated and received broad-spectrum antibiotics. Despite being on broad-spectrum antibiotics, over the course of his hospitalization, the patient's infiltrates continue to progress. The patient went on to develop worsening respiratory distress, which was refractory to the use of noninvasive positive pressure ventilation. Following a lengthy discussion with the patient's family, the decision was made to initiate comfort care measures. The patient peacefully with family at the bedside at 0956. 2. Acute hypoxic respiratory failure Likely secondary to underlying pulmonary infectious process. However, given the degree of the patient's hypoxia and acuity in onset, clinical considerations would also include that for venous thromboembolic disease. Nevertheless, the patient's elevated creatinine would preclude obtaining a CTA chest. 3. 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 However, there was findings of de abi AML associated with anemia. The patient's prognosis remains poor. 4. Macrocytic anemia The patient's hemoglobin on presentation was noted to be 8.7 g/dL. Previously, the patient had a baseline hemoglobin in the 12-14 range. We will continue to monitor accordingly. Transfuse if hemoglobin drops below 7 g/dL. 5. Acute kidney injury Slowly improving. Likely prerenal in etiology. Anticipate improvement with volume expansion and stabilization of hemodynamics. Urine output is currently appropriate. No indication for renal replacement therapy. 6. Troponin elevation Likely secondary to demand ischemia in the setting of #1. 7. Personal history of asthma/depression/restless leg syndrome/nonischemic cardiomyopathy/obesity Complicates care, management, recovery and prognosis. Continue to hold outpatient diuretics. Physical therapy to work with patient. 8. CODE STATUS DNR CC. TIME: 80 minutes of critical care time, independent of procedures, was spent addressing the patient's septic shock, acute respiratory failure, chronic leukemia, anemia, acute kidney injury, troponin elevation, CODE STATUS discussion and goals of care planning, review of all data and collaboration with the care team. ([id number]) Code Visit Procedures: 81797 Critial Care Addl 30 Min 9xxxx: [id number] Critical care first hour
--- NOTE | 2018-09-05 07:06 | PN_ITS ---
Subjective: The patient was seen and examined at the bedside this morning. Events from the last 24 hours have been reviewed. The patient did have an isolated fever overnight to 38.6 ?C. He remains tachycardic but is hemodynamically stable. The patient has become exceedingly altered in mentation, particularly overnight and did require a one-time dose of Haldol. He has been intermittently tolerant of BiPAP therapy. Over the course of the morning hours, the patient continued to deteriorate from a clinical status. His FiO2 requirement continued to increase. He remained exceedingly anxious and agitated. The patient was clearly in respiratory distress and experiencing significant work of breathing. I met with the patient's and family at the bedside and made them aware of the events over the last 12 hours. I discussed options for moving forward including resending the patient's DNR CCA status moving forward with intubation or transitioning the patient to comfort measures. The patient's and family elected to pursue comfort care measures. Therefore, the patient's CODE STATUS was updated to DNR CC. The patient was removed from BiPAP and placed on nasal cannula. He was medicated appropriately for anxiety and shortness of breath/air hunger. After a very short time, the patient peacefully with family at the bedside. Time of was 0956 on September 05, 2018. Objective: The patient's most recent lab work, culture data and imaging studies have all been personally reviewed. Strep and urine Legionella antigens are negative. Rapid influenza screen was negative. Blood and urine cultures are pending. Sputum culture is also pending. Surface echocardiogram dated October 2017 revealed normal LV size and function with an ejection fraction of 53%. Surface echocardiogram completed September 03 revealed normal LV size and function with an ejection fraction of 60%. Lower extremity Doppler study revealed no evidence for DVT. Plain film chest x-ray revealed progressive bilateral infiltrates. General: Confused, Disoriented, - - Clearly distressed on BiPAP. HEENT: Atraumatic, PERRLA, Normocephalic Oral: Dry Mucosa Neck: Supple, No Nodes, Trachea Midline Lungs: Diminished, Rhonchi, Short of Breath, Tachypneic, Using Accessory Muscles Cardiovascular: Normal S1, Normal S2, No murmurs, Tachycardic Abdomen: Bowel Sounds Present, Soft, Non Tender, Obese Extremities: No clubbing, No cyanosis, No edema Skin: No breakdown Musculoskeletal: No Muscle Wasting Neurological: Neuro grossly intact Psych/Mental Status: Anxious, Restless Vital Signs Temp Pulse Resp BP Pulse Ox 36.3 C L 120 H 38 H 100/87 H 92 09/05/18 00:00 09/05/18 06:00 09/05/18 06:00 09/05/18 06:00 09/05/18 06:00 Oxygen Flow Rate (L/min) 4 Oxygen Delivery Method Bi-pap Weight: 291 lb 7.218 oz Body Mass Index (BMI) 37.3 Intake and Output for Last 24 Hours 09/03/18 09/04/18 09/05/18 23:59 23:59 23:59 Intake Total 3258 / 3258 2070.5 / 2070.5 159 / 159 Output Total 250 / 250 950 / 950 350 / 350 Balance 3008 / 3008 1120.5 / 1120.5 -191 / -191 Labs (Last 48 Hours) 09/03/18 09/03/18 09/03/18 09:00 09:00 09:00 WBC 57.5 H* RBC 2.70 L Hgb 8.7 L Hct 27.3 L MCV 101.1 H MCH 32.2 H MCHC 31.9 L RDW 20.1 H RDW Differential 70.8 H Plt Count 76 L MPV TNP Immature Gran % (Auto) Neut % (Auto) Not Reportable Lymph % (Auto) [place] % (Auto) Eos % (Auto) Baso % (Auto) Absolute Neuts (auto) 51.2 H Absolute Lymphs (auto) 4.00 Total Counted 100 Neutrophils % (Manual) 87 H Band Neutrophils % 2 Lymphocytes % (Manual) 7 L Monocytes % (Manual) 4 Basophils % (Manual) Metamyelocytes % Nucleated RBC % 0.7 Diff Path Review Reviewed Platelet Estimate MOD DEC Plt Morphology Comment Polychromasia Hypochromasia 2+ Anisocytosis Microcytosis Macrocytosis 1+ Absolute Retic 0.42 PT 19.5 H INR 1.6 APTT 30.3 Specimen Type Sample Site pH Bicarbonate Actual POC Total CO2 Base Excess O2 Saturation O2 % ABG pCO2 ABG pO2 Tu Test Respiration Rate O2 Delivery Device EPAP IPAP Blood Gas Notified Whom Blood Gas Notified Time Sodium 132 L Potassium 4.0 Chloride 96 L Carbon Dioxide 21.0 Anion Gap 15 BUN 45 H Creatinine 3.00 H Estim Creat Clear Calc 24.25 Est GFR (MDRD) Af Amer 26 L Est GFR (MDRD) Non-Af 22 L BUN/Creatinine Ratio 15.0 Glucose 144 H Lactic Acid Calcium 7.9 L Magnesium Total Bilirubin 1.60 H AST 34 ALT 27 Alkaline Phosphatase 98 Troponin I 0.046 H Total Protein 6.3 L Albumin 2.5 L Globulin 3.8 Albumin/Globulin Ratio 0.7 L Urine Color Urine Clarity Urine pH Ur Specific [place] Urine Protein Urine Glucose (UA) Urine Ketones Urine Occult Blood Urine Nitrite Urine Bilirubin Urine Urobilinogen Ur Leukocyte Esterase Urine RBC Urine WBC Ur Squamous Epith Cells Amorphous Sediment Urine Bacteria Urine Mucus MRSA (PCR) 09/03/18 09/03/18 09/03/18 09:00 11:45 15:20 WBC RBC Hgb Hct MCV MCH MCHC RDW RDW Differential Plt Count MPV Immature Gran % (Auto) Neut % (Auto) Lymph % (Auto) [place] % (Auto) Eos % (Auto) Baso % (Auto) Absolute Neuts (auto) Absolute Lymphs (auto) Total Counted Neutrophils % (Manual) Band Neutrophils % Lymphocytes % (Manual) Monocytes % (Manual) Basophils % (Manual) Metamyelocytes % Nucleated RBC % Diff Path Review Platelet Estimate Plt Morphology Comment Polychromasia Hypochromasia Anisocytosis Microcytosis Macrocytosis Absolute Retic PT INR APTT Specimen Type ART Sample Site R Radial pH 7.40 Bicarbonate Actual 17.7 L POC Total CO2 19 Base Excess -7 L O2 Saturation 96 O2 % 40 ABG pCO2 28.5 L ABG pO2 82 Tu Test POS Respiration Rate 12 O2 Delivery Device Bi / C PAP EPAP 7 IPAP 14 Blood Gas Notified Whom ICU Blood Gas Notified Time 1522 Sodium Potassium Chloride Carbon Dioxide Anion Gap BUN Creatinine Estim Creat Clear Calc Est GFR (MDRD) Af Amer Est GFR (MDRD) Non-Af BUN/Creatinine Ratio Glucose Lactic Acid 7.4 H* Calcium Magnesium Total Bilirubin AST ALT Alkaline Phosphatase Troponin I Total Protein Albumin Globulin Albumin/Globulin Ratio Urine Color Yellow Urine Clarity Sl. Cloudy Urine pH 5.0 Ur Specific [place] 1.025 Urine Protein 30 H Urine Glucose (UA) Normal Urine Ketones 5 H Urine Occult Blood 150 H Urine Nitrite Negative Urine Bilirubin 1 H Urine Urobilinogen 4 H Ur Leukocyte Esterase 100 H Urine RBC 10-25 SEEN Urine WBC 10-25 SEEN Ur Squamous Epith Cells 0 SEEN Amorphous Sediment 1+ Urine Bacteria 1+ Urine Mucus 0 SEEN MRSA (PCR) 09/03/18 09/03/18 09/03/18 15:45 15:45 17:45 WBC RBC Hgb Hct MCV MCH MCHC RDW RDW Differential Plt Count MPV Immature Gran % (Auto) Neut % (Auto) Lymph % (Auto) [place] % (Auto) Eos % (Auto) Baso % (Auto) Absolute Neuts (auto) Absolute Lymphs (auto) Total Counted Neutrophils % (Manual) Band Neutrophils % Lymphocytes % (Manual) Monocytes % (Manual) Basophils % (Manual) Metamyelocytes % Nucleated RBC % Diff Path Review Platelet Estimate Plt Morphology Comment Polychromasia Hypochromasia Anisocytosis Microcytosis Macrocytosis Absolute Retic PT Cancelled INR Cancelled APTT Cancelled Specimen Type Sample Site pH Bicarbonate Actual POC Total CO2 Base Excess O2 Saturation O2 % ABG pCO2 ABG pO2 Tu Test Respiration Rate O2 Delivery Device EPAP IPAP Blood Gas Notified Whom Blood Gas Notified Time Sodium Potassium Chloride Carbon Dioxide Anion Gap BUN Creatinine Estim Creat Clear Calc Est GFR (MDRD) Af Amer Est GFR (MDRD) Non-Af BUN/Creatinine Ratio Glucose Lactic Acid 2.9 H Calcium Magnesium Total Bilirubin AST ALT Alkaline Phosphatase Troponin I Total Protein Albumin Globulin Albumin/Globulin Ratio Urine Color Urine Clarity Urine pH Ur Specific [place] Urine Protein Urine Glucose (UA) Urine Ketones Urine Occult Blood Urine Nitrite Urine Bilirubin Urine Urobilinogen Ur Leukocyte Esterase Urine RBC Urine WBC Ur Squamous Epith Cells Amorphous Sediment Urine Bacteria Urine Mucus MRSA (PCR) Negative 09/04/18 09/04/18 09/04/18 04:30 04:30 11:35 WBC 36.4 H* RBC 2.49 L Hgb 8.0 L Hct 24.9 L MCV 100.0 H MCH 32.1 H MCHC 32.1 RDW 20.5 H RDW Differential 71.4 H Plt Count 59 L MPV TNP Immature Gran % (Auto) [employer] Neut % (Auto) [employer] Lymph % (Auto) [employer] [place] % (Auto) [employer] Eos % (Auto) [employer] Baso % (Auto) [employer] Absolute Neuts (auto) 33.9 H Absolute Lymphs (auto) 0.73 L Total Counted 100 Neutrophils % (Manual) 93 H Band Neutrophils % Lymphocytes % (Manual) 2 L Monocytes % (Manual) 3 Basophils % (Manual) 1 Metamyelocytes % 1 Nucleated RBC % Diff Path Review Reviewed Platelet Estimate MOD DEC Plt Morphology Comment LARGE Polychromasia Hypochromasia Anisocytosis 1+ Microcytosis Macrocytosis Absolute Retic PT INR APTT Specimen Type Sample Site pH Bicarbonate Actual POC Total CO2 Base Excess O2 Saturation O2 % ABG pCO2 ABG pO2 Tu Test Respiration Rate O2 Delivery Device EPAP IPAP Blood Gas Notified Whom Blood Gas Notified Time Sodium 137 Potassium 3.9 Chloride 101 Carbon Dioxide 22.0 Anion Gap 14 BUN 55 H Creatinine 2.91 H Estim Creat Clear Calc 25.00 Est GFR (MDRD) Af Amer 27 L Est GFR (MDRD) Non-Af 22 L BUN/Creatinine Ratio 18.9 Glucose 159 H Lactic Acid Calcium 7.6 L Magnesium 1.9 Total Bilirubin AST ALT Alkaline Phosphatase Troponin I 0.025 Total Protein Albumin Globulin Albumin/Globulin Ratio Urine Color Urine Clarity Urine pH Ur Specific [place] Urine Protein Urine Glucose (UA) Urine Ketones Urine Occult Blood Urine Nitrite Urine Bilirubin Urine Urobilinogen Ur Leukocyte Esterase Urine RBC Urine WBC Ur Squamous Epith Cells Amorphous Sediment Urine Bacteria Urine Mucus MRSA (PCR) 09/05/18 09/05/18 04:20 04:20 WBC 34.8 H* RBC 2.73 L Hgb 8.7 L Hct 27.2 L MCV 99.6 H MCH 31.9 MCHC 32.0 RDW 20.8 H RDW Differential 72.7 H Plt Count 67 L MPV Immature Gran % (Auto) Neut % (Auto) Not Reportable Lymph % (Auto) [place] % (Auto) Eos % (Auto) Baso % (Auto) Absolute Neuts (auto) 29.9 H Absolute Lymphs (auto) 2.78 Total Counted 100 Neutrophils % (Manual) 79 H Band Neutrophils % 7 H Lymphocytes % (Manual) 8 L Monocytes % (Manual) 3 Basophils % (Manual) Metamyelocytes % 3 H Nucleated RBC % 2.0 Diff Path Review May foll Platelet Estimate MOD DEC Plt Morphology Comment LARGE Polychromasia 1+ Hypochromasia 2+ Anisocytosis Microcytosis 1+ Macrocytosis Absolute Retic 0.69 PT INR APTT Specimen Type Sample Site pH Bicarbonate Actual POC Total CO2 Base Excess O2 Saturation O2 % ABG pCO2 ABG pO2 Tu Test Respiration Rate O2 Delivery Device EPAP IPAP Blood Gas Notified Whom Blood Gas Notified Time Sodium 141 Potassium 3.9 Chloride 105 Carbon Dioxide 19.0 L Anion Gap 17 H BUN 70 H Creatinine 3.14 H Estim Creat Clear Calc 23.17 Est GFR (MDRD) Af Amer 25 L Est GFR (MDRD) Non-Af 21 L BUN/Creatinine Ratio 22.3 H Glucose 132 H Lactic Acid Calcium 8.1 L Magnesium Total Bilirubin AST ALT Alkaline Phosphatase Troponin I Total Protein Albumin Globulin Albumin/Globulin Ratio Urine Color Urine Clarity Urine pH Ur Specific [place] Urine Protein Urine Glucose (UA) Urine Ketones Urine Occult Blood Urine Nitrite Urine Bilirubin Urine Urobilinogen Ur Leukocyte Esterase Urine RBC Urine WBC Ur Squamous Epith Cells Amorphous Sediment Urine Bacteria Urine Mucus MRSA (PCR) Microbiology 09/04/18 10:00 Sputum, Expectorated/Coughed Gram Stain - Final 09/03/18 11:45 Urine Catheter - Swartz Urine Culture - Preliminary Culture exhibits no growth. 09/03/18 11:45 Urine Catheter - Swartz Legionella Antigen - Final 09/03/18 11:45 Urine Catheter - Swartz Streptococcus pneumoniae Antigen (M - Final 09/03/18 14:39 Mucosa - Nose Influenza Types A,B Direct FA (LENA) - Final Clinical Impression(s) from Imaging Studies Chest X-Ray 09/03/18 10:47 IMPRESSION: I suspect focal infiltrate in the right infrahilar region. Follow-up is recommended. Electronically Signed: Sandro Scott MD at 11:23 EST Tel [phone], Service support , Chest X-Ray 09/03/18 15:46 IMPRESSION: Right-sided central venous line with tip superimposed on the distal SVC. Elevated left hemidiaphragm. Suspected medial right lower lobe infiltrate, similar to the previous study. Degenerative changes of the right shoulder joint. Electronically Signed: Manuel Jade MD at 16:45 EST , Service support , Chest X-Ray 09/04/18 11:00 IMPRESSION: Progressive infiltrates in both lower lobes worse on the right side as compared to prior study. Electronically Signed: Sandro Scott MD at 11:20 EST Tel [phone], Service support , Clinical Impression(s) from Imaging Studies Chest X-Ray 09/03/18 10:47 IMPRESSION: I suspect focal infiltrate in the right infrahilar region. Follow-up is recommended. Electronically Signed: Sandro Scott MD at 11:23 EST Tel [phone], Service support , Chest X-Ray 09/03/18 15:46 IMPRESSION: Right-sided central venous line with tip superimposed on the distal SVC. Elevated left hemidiaphragm. Suspected medial right lower lobe infiltrate, similar to the previous study. Degenerative changes of the right shoulder joint. Electronically Signed: Manuel Jade MD at 16:45 EST , Service support , Chest X-Ray 09/04/18 11:00 IMPRESSION: Progressive infiltrates in both lower lobes worse on the right side as compared to prior study. Electronically Signed: Sandro Scott MD at 11:20 EST Tel [phone], Service support , Medical Necessity - Tobacco Use Smoking Status: Former smoker Assessment/Plan All Active Problems (Last Reviewed 10/25/17 @ 10:21 by Josué Aguilar MD) Septic shock (Acute) AML (acute myeloid leukemia) (Acute) RECOMMENDATIONS: 1. Following a discussion with the family at the bedside, the decision was made to pursue comfort care measures. 2. CODE STATUS updated to DNR CC IMPRESSIONS: 1. Septic shock with concerns for community-acquired pneumonia The patient initially presented with complaints of shortness of breath and cough. His plain film chest x-ray did reveal findings concerning for a right perihilar infiltrate. The patient was volume resuscitated and received broad- spectrum antibiotics. Despite being on broad-spectrum antibiotics, over the course of his hospitalization, the patient's infiltrates continue to progress. The patient went on to develop worsening respiratory distress, which was refractory to the use of noninvasive positive pressure ventilation. Following a lengthy discussion with the patient's family, the decision was made to initiate comfort care measures. The patient peacefully with family at the bedside at 0956. 2. Acute hypoxic respiratory failure Likely secondary to underlying pulmonary infectious process. However, given the degree of the patient's hypoxia and acuity in onset, clinical considerations would also include that for venous thromboembolic disease. Nevertheless, the patient's elevated creatinine would preclude obtaining a CTA chest. 3. 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 However, there was findings of de abi AML associated with anemia. The patient's prognosis remains poor. 4. Macrocytic anemia The patient's hemoglobin on presentation was noted to be 8.7 g/dL. Previously, the patient had a baseline hemoglobin in the 12-14 range. We will continue to monitor accordingly. Transfuse if hemoglobin drops below 7 g/dL. 5. Acute kidney injury Slowly improving. Likely prerenal in etiology. Anticipate improvement with volume expansion and stabilization of hemodynamics. Urine output is currently appropriate. No indication for renal replacement therapy. 6. Troponin elevation Likely secondary to demand ischemia in the setting of #1. 7. Personal history of asthma/depression/restless leg syndrome/nonischemic cardiomyopathy/obesity Complicates care, management, recovery and prognosis. Continue to hold outpatient diuretics. Physical therapy to work with patient. 8. CODE STATUS DNR CC. TIME: 80 minutes of critical care time, independent of procedures, was spent addressing the patient's septic shock, acute respiratory failure, chronic leukemia, anemia, acute kidney injury, troponin elevation, CODE STATUS discussion and goals of care planning, review of all data and collaboration with the care team. ([id number]) Code Visit Procedures: 57063 Critial Care Addl 30 Min 9xxxx: [id number] Critical care first hour
--- NOTE | 2018-09-05 07:22 | PCM.PN.HOSP ---
Patient Problems: Active and Suspected Problems (Last Reviewed 10/25/17 @ 10:21 by Josué Aguilar MD) Septic shock (Acute) AML (acute myeloid leukemia) (Acute) Subjective: Patient seen remains on BiPAP. He did develop delirium the day prior. Patient seems to have increasing work of breathing kidney function appears worse. Chest x-ray obtained the day prior demonstrated Progressive infiltrates in both lower lobes worse on the right side as compared to prior study. Objective: GENERAL: Appears ill looking, dyspneic at rest on BiPAP HEENT: Atraumatic; moist oral mucosa EYES; Anicteric, Normal Conjunctiva NECK; supple, normal thyroid, RESPIRATORY: Diminished to auscultation bilaterally, lateral rhonchi CARDIOVASCULAR: Regular S1 S2, GI: soft, non-tender, normoactive bowel sounds, : No Renal angle tenderness; EXTREMITIES: No edema, no clubbing, MUSCULOSKELETAL: No Joint Tenderness; NEURO: Awake; no lateralizing signs. SKIN: Stasis dermatitis involving both lower extremities PSYCH; Normal affect Vitals/I&O's: Vital Signs Temp Pulse Resp BP Pulse Ox 97.4 F L 110 H 34 H 109/67 92 09/05/18 00:00 09/05/18 07:00 09/05/18 07:00 09/05/18 07:00 09/05/18 07:00 Oxygen Flow Rate (L/min) 4 Oxygen Delivery Method Bi-pap Weight: 132.2 kg Body Mass Index (BMI) 37.3 Intake and Output for Last 24 Hours 09/03/18 09/04/18 09/05/18 23:59 23:59 23:59 Intake Total 3258 / 3258 2070.5 / 2070.5 159 / 159 Output Total 250 / 250 950 / 950 350 / 350 Balance 3008 / 3008 1120.5 / 1120.5 -191 / -191 Microbiology Past 72 Hours 09/04/18 10:00 Sputum, Expectorated/Coughed Gram Stain - Final 09/03/18 11:45 Urine Catheter - Swartz Urine Culture - Preliminary Culture exhibits no growth. 09/03/18 11:45 Urine Catheter - Swartz Legionella Antigen - Final 09/03/18 11:45 Urine Catheter - Swartz Streptococcus pneumoniae Antigen (M - Final 09/03/18 14:39 Mucosa - Nose Influenza Types A,B Direct FA (LENA) - Final Laboratory Results 09/03/18 09:00: Diff Path Review Reviewed 09/04/18 04:30: Immature Gran % (Auto) CARD PUNCHER, Neut % (Auto) CARD PUNCHER, Lymph % (Auto) CARD PUNCHER, Logan % (Auto) CARD PUNCHER, Eos % (Auto) CARD PUNCHER, Baso % (Auto) CARD PUNCHER, Absolute Neuts (auto) 33.9 H, Absolute Lymphs (auto) 0.73 L, Total Counted 100, Neutrophils % (Manual) 93 H, Lymphocytes % (Manual) 2 L, Monocytes % (Manual) 3, Basophils % (Manual) 1, Metamyelocytes % 1, Diff Path Review Reviewed, Platelet Estimate MOD DEC, Plt Morphology Comment LARGE, Anisocytosis 1+ 09/04/18 11:35: Troponin I 0.025 09/05/18 04:20: Sodium 141, Potassium 3.9, Chloride 105, Carbon Dioxide 19.0 L, Anion Gap 17 H, BUN 70 H, Creatinine 3.14 H, Estim Creat Clear Calc 23.17, Est GFR (MDRD) Af Amer 25 L, Est GFR (MDRD) Non-Af 21 L, BUN/Creatinine Ratio 22.3 H, Glucose 132 H, Calcium 8.1 L 09/05/18 04:20: WBC 34.8 H*, RBC 2.73 L, Hgb 8.7 L, Hct 27.2 L, MCV 99.6 H, MCH 31.9, MCHC 32.0, RDW 20.8 H, RDW Differential 72.7 H, Plt Count 67 L, Neut % (Auto) Not Reportable, Absolute Neuts (auto) 29.9 H, Absolute Lymphs (auto) 2.78, Total Counted 100, Neutrophils % (Manual) 79 H, Band Neutrophils % 7 H, Lymphocytes % (Manual) 8 L, Monocytes % (Manual) 3, Metamyelocytes % 3 H, Nucleated RBC % 2.0, Diff Path Review May foll, Platelet Estimate MOD DEC, Plt Morphology Comment LARGE, Polychromasia 1+, Hypochromasia 2+, Microcytosis 1+, Absolute Retic 0.69 Current Medications Acetaminophen (Tylenol) 650 mg PO Q4H PRN PRN PRN Reason: FEVER Acetaminophen (Tylenol) 650 mg RECTAL Q6H PRN PRN PRN Reason: FEVER Last Admin: 09/04/18 21:48 Dose: 650 mg Albuterol Sulfate (Ventolin Aerosols) 2.5 mg INHALATION Q2H PRN PRN PRN Reason: SHORTNESS OF BREATH Last Admin: 09/04/18 16:38 Dose: 2.5 mg Albuterol/Ipratropium (Duoneb) 3 ml INHALATION Q4HWA.RT [facility] Last Admin: 09/05/18 06:58 Dose: 3 ml Duloxetine HCl (Cymbalta) 60 mg PO QHS [facility] Last Admin: 09/04/18 22:00 Dose: Not Given Famotidine (Pepcid) 20 mg PO DAILY [facility] Last Admin: 09/04/18 10:17 Dose: Not Given Fentanyl (Duragesic Patch) 25 mcg TRANSDERM. Q72H [facility] Ferrous Sulfate (Ferrous Sulfate) 325 mg PO BIDCM [facility] Last Admin: 09/04/18 15:50 Dose: Not Given Gabapentin (Neurontin) 100 mg PO BID [facility] Last Admin: 09/04/18 22:00 Dose: Not Given Guaifenesin (Mucinex) 1,200 mg PO BID [facility] Last Admin: 09/04/18 22:00 Dose: Not Given Piperacillin Sod/Tazobactam Sod (Zosyn) 3.375 gm in 50 mls @ 12.5 mls/hr IV Q12 [facility] Last Admin: 09/04/18 21:48 Dose: 12.5 mls/hr Latanoprost (Xalatan Opthalmic) 1 drop EACH EYE QHS [facility] Last Admin: 09/04/18 21:48 Dose: 1 drop Magnesium Hydroxide (Milk Of Magnesia) 30 ml PO DAILY PRN PRN PRN Reason: Constipation Montelukast Sodium (Singulair) 10 mg PO QHS [facility] Last Admin: 09/04/18 22:00 Dose: Not Given Ondansetron HCl (Zofran) 4 mg IV Q8H PRN PRN PRN Reason: NAUSEA Oxycodone HCl (Oxyir) 5 mg PO Q4H PRN PRN PRN Reason: Moderate Pain (pain scale 4-5) Pramipexole Dihydrochloride (Mirapex) 0.125 mg PO QHS [facility] Last Admin: 09/04/18 22:00 Dose: Not Given Sodium Chloride () 5 - 15 ml IV UD PRN PRN Reason: SALINE FLUSH Last Admin: 09/05/18 06:05 Dose: 10 ml Zolpidem Tartrate (Ambien (Generic)) 5 mg PO QHS PRN PRN PRN Reason: SLEEP Medical Necessity - Tobacco Use Smoking Status: Former smoker Assessment/Plan All Active Problems (Last Reviewed 10/25/17 @ 10:21 by Josué Aguilar MD) Septic shock (Acute) AML (acute myeloid leukemia) (Acute) Patient is a 78-year-old gentleman recently diagnosed with recurrent chronic lymphocytic leukemia who presented with progressive generalized weakness and assessment of septic shock was made attributed to suspected community-acquired pneumonia as well as acute cystitis 1. Septic shock secondary to community-acquired pneumonia as well as acute cystitis: Patient has been admitted to intensive care unit managed with stroke protocol consisting of aggressive IV fluid resuscitation, broad-spectrum antibiotic therapy with ciprofloxacin as well as Zosyn in addition to vancomycin after cultures have been obtained in the ED, consultation was also placed to the emergency department manager Dr. Giles Case discussed with team. Patient blood pressure remains tenuous at this point 2. Community-acquired pneumonia presented with septic shock management as discussed above 3. Acute hypoxic respiratory failure secondary to pneumonia. Patient has been managed with broad-spectrum antibiotic therapy in addition to noninvasive ventilation/BiPAP. Chest x-ray obtained the day prior demonstrated progressive worsening of his right-sided infiltrate 4. Acute cystitis; on antibiotic therapy urine cultures exhibited no growth 5. Leucocytosis; Discussed with Dr Martinez; patient probably has new onset leukemia probably AML 6. Thrombocytopenia secondary to patient's sepsis as well as his underlying malignancy patient does not have any signs or symptoms of active bleeding for now 7. 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 Non ischemic cardiomyopathy status post AICD placement 9. Restless leg syndrome patient is on Requip 10. Dyslipidemia managed with diet only 11. Hypertension antihypertensives on hold in view of patient presentation 13. History of chronic lymphocytic leukemia 14. DVT prophylaxis SCDs for now avoided the use of chemoprophylaxis in view of patient thrombocytopenia Clinical Impression(s) from Imaging Studies Chest X-Ray 09/04/18 11:00 IMPRESSION: Progressive infiltrates in both lower lobes worse on the right side as compared to prior study. Electronically Signed: Sandro Scott MD at 11:20 EST Tel [phone], Service support , Active Medications Acetaminophen (Tylenol) 650 mg PO Q4H PRN PRN PRN Reason: FEVER Acetaminophen (Tylenol) 650 mg RECTAL Q6H PRN PRN PRN Reason: FEVER Last Admin: 09/04/18 21:48 Dose: 650 mg Albuterol Sulfate (Ventolin Aerosols) 2.5 mg INHALATION Q2H PRN PRN PRN Reason: SHORTNESS OF BREATH Last Admin: 09/04/18 16:38 Dose: 2.5 mg Albuterol/Ipratropium (Duoneb) 3 ml INHALATION Q4HWA.RT [facility] Last Admin: 09/05/18 06:58 Dose: 3 ml Duloxetine HCl (Cymbalta) 60 mg PO QHS [facility] Last Admin: 09/04/18 22:00 Dose: Not Given Famotidine (Pepcid) 20 mg PO DAILY [facility] Last Admin: 09/04/18 10:17 Dose: Not Given Fentanyl (Duragesic Patch) 25 mcg TRANSDERM. Q72H [facility] Ferrous Sulfate (Ferrous Sulfate) 325 mg PO BIDCM [facility] Last Admin: 09/04/18 15:50 Dose: Not Given Gabapentin (Neurontin) 100 mg PO BID [facility] Last Admin: 09/04/18 22:00 Dose: Not Given Guaifenesin (Mucinex) 1,200 mg PO BID [facility] Last Admin: 09/04/18 22:00 Dose: Not Given Piperacillin Sod/Tazobactam Sod (Zosyn) 3.375 gm in 50 mls @ 12.5 mls/hr IV Q12 [facility] Last Admin: 09/04/18 21:48 Dose: 12.5 mls/hr Latanoprost (Xalatan Opthalmic) 1 drop EACH EYE QHS [facility] Last Admin: 09/04/18 21:48 Dose: 1 drop Magnesium Hydroxide (Milk Of Magnesia) 30 ml PO DAILY PRN PRN PRN Reason: Constipation Montelukast Sodium (Singulair) 10 mg PO QHS [facility] Last Admin: 09/04/18 22:00 Dose: Not Given Ondansetron HCl (Zofran) 4 mg IV Q8H PRN PRN PRN Reason: NAUSEA Oxycodone HCl (Oxyir) 5 mg PO Q4H PRN PRN PRN Reason: Moderate Pain (pain scale 4-5) Pramipexole Dihydrochloride (Mirapex) 0.125 mg PO QHS [facility] Last Admin: 09/04/18 22:00 Dose: Not Given Sodium Chloride () 5 - 15 ml IV UD PRN PRN Reason: SALINE FLUSH Last Admin: 09/05/18 06:05 Dose: 10 ml Zolpidem Tartrate (Ambien (Generic)) 5 mg PO QHS PRN PRN PRN Reason: SLEEP Code Visit Inpatient E&M: 35243 Subs Hosp L3
[2018-09-05] MEDS: Haloperidol Lactate 5 MG/ML Vial IV (08:15)
[2018-09-05] MEDS: fentaNYL 25 MCG Patch TRANSDERM. (09:00)
--- NOTE | 2018-09-05 09:39 | CASEMGMT ---
Addendum entered by Cielo Stephens 09/05/18 09:53: Pt just , SW called hospice back to let them know. ELISA Phillips, SENIOR QA TESTER Original Note: SW spoke w/physician, he states family agreeable to a hospice referral. SW called hospice, faxed referral. Hospice can meet w/family at 12pm. SW let daughter and in room know, they are agreeable to the time. SW remains available for any further assist or support to family. SW let hospice know also that 12pm is fine. ELISA Phillips, SENIOR QA TESTER
--- NOTE | 2018-09-05 11:56 | CHAPLAIN ---
Type of Pastoral Visit ___ Initial Visit ___ Follow-up Visit ___ On-call Visit ___ General Patient Visit ___ Spiritual Assessment ___ Family Conference _x__ Bereavement ___ Rapid Response ___ Code Blue ___ Other (describe below) Pastoral Care Referral From ___ Patient _x__ Family ___ Nurse ___ Physician ___ Pay Station Attendant ___ Broodmare Barn Groom _x__ Other (describe below) Sacrament/Intervention ___ Active listening ___ Anointing ___ Restorationism x___ Bereavement ___ Communion ___ Rivka exploration ___ ___ Life review _x__ Prayer ___ Reconciliation ___ Sacrament of Sick _x__ Supportive presence ___ Wedding ___ Other (describe below) Pastoral Comments met with family members at passing of patient; offered to speak a prayer which was accepted; offered supportive presence to family
[2018-09-05 12:19] LABS: Pathologist Review Reviewed
--- NOTE | 2018-09-05 14:29 | PCM.DEATH ---
Preliminary Cause of Septic shock secondary to community-acquired pneumonia Date of Admission: 09/03/18 Date of : 09/05/18 - Principle Diagnosis Septic shock secondary to community-acquired pneumonia Acute leukemia Hospital Course Patient is a 78-year-old gentleman recently diagnosed with recurrent chronic lymphocytic leukemia who presented with progressive generalized weakness and assessment of septic shock was made attributed to suspected community-acquired pneumonia as well as acute cystitis. Patient has been admitted to intensive care unit managed with stroke protocol consisting of aggressive IV fluid resuscitation, broad-spectrum antibiotic therapy with ciprofloxacin as well as Zosyn in addition to vancomycin after cultures have been obtained in the ED, consultation was also placed to the diving coach Dr. Giles Case discussed with team.. Patient was also found to have significant leukocytosis; case was discussed with Dr Martinez who confirmed patient recent diagnosis of acute leukemia. Patient condition initially improved however he quickly deteriorated on 09/05/2018. CODE STATUS was changed from DNR CCA to DNR CC and patient at 0956 on 09/05/2018 with family by the bedside Time Spent on patient on the day of his expiration 35 minutes Code Visit Inpatient E&M: [id number] Disch Hosp
--- NOTE | 2018-09-05 14:33 | EXP.PCM_ITS ---
Preliminary Cause of Septic shock secondary to community-acquired pneumonia Date of Admission: 09/03/18 Date of : 09/05/18 - Principle Diagnosis Septic shock secondary to community-acquired pneumonia Acute leukemia Hospital Course Patient is a 78-year-old gentleman recently diagnosed with recurrent chronic lymphocytic leukemia who presented with progressive generalized weakness and assessment of septic shock was made attributed to suspected community-acquired pneumonia as well as acute cystitis. Patient has been admitted to intensive care unit managed with stroke protocol consisting of aggressive IV fluid resuscitation, broad-spectrum antibiotic therapy with ciprofloxacin as well as Zosyn in addition to vancomycin after cultures have been obtained in the ED, consultation was also placed to the center director lead teacher Dr. Giles Case discussed with team.. Patient was also found to have significant leukocytosis; case was discussed with Dr Martinez who confirmed patient recent diagnosis of acute leukemia. Patient condition initially improved however he quickly deteriorated on 09/05/2018. CODE STATUS was changed from DNR CCA to DNR CC and patient at 0956 on 09/05/2018 with family by the bedside Time Spent on patient on the day of his expiration 35 minutes Code Visit Inpatient E&M: [id number] Disch Hosp
== END 2018-09-05 09:56 | DRG 871 ==
LOC: ED 13:03 → ICU 13:03
PROVIDERS: Internal Medicine Critical Care Medicine; Admitting Provider Internal Medicine; Emergency Provider Emergency Medicine; Family Provider Family Medicine; PCP Family Medicine; Visit Provider Internal Medicine
DX: A41.9 Sepsis, unspecified organism (principal); J18.9 Pneumonia, unspecified organism; R65.21 Severe sepsis with septic shock; J96.01 Acute respiratory failure with hypoxia; N17.9 Acute kidney failure, unspecified; I50.22 Chronic systolic (congestive) heart failure; N30.00 Acute cystitis without hematuria; I24.8 Other forms of acute ischemic heart disease; C92.00 Acute myeloblastic leukemia, not having achieved remission; Z95.810 Presence of automatic (implantable) cardiac defibrillator; E78.5 Hyperlipidemia, unspecified; Z79.899 Other long term (current) drug therapy; Z87.891 Personal history of nicotine dependence; D69.59 Other secondary thrombocytopenia; D63.0 Anemia in neoplastic disease; G25.81 Restless legs syndrome; Z66 Do not resuscitate; I11.0 Hypertensive heart disease with heart failure; J45.909 Unspecified asthma, uncomplicated
CPT/HCPCS: 36600; 71045; 71046; 80048; 80053; 81001; 82803; 83605; 83735; 84484; 85025; 85610; 85730; 87040; 87070; 87086; 87205; 87449; 87641; 87804; 93005; 93306; 93970; 94002; 94003; 94640; 97162; 97165; 97802; 99285; J7030; J7040; J7050; Q9957; A4216; C8929; J1940